=== PATIENT | male | born 1945 | race Hispanic/Latino ===

== ENCOUNTER 2017-07-13 15:58 | Inpatient (IN) | payer OTHER, MEDICARE ==
--- NOTE | 2017-07-13 16:42 | C.PDOC ---
History Of Present Illness 72 year old male presents to the ED for evaluation of cough that is productive of brown sputum and shortness of breath on exertion which began 1 week ago. Patient denies fever, chills. Time Seen by Provider: 07/13/17 16:38 Chief Complaint (Nursing): Shortness Of Breath History Per: Patient History/Exam Limitations: no limitations Onset/Duration Of Symptoms: Other (1 week ) Current Symptoms Are (Timing): Still Present Exacerbating Factor(s): Exertion Current Respiratory Medications: See Home Med List Associated Symptoms: Productive Cough (brown ). denies: Fever, Chills Additional History Per: Patient Past Medical History Reviewed: Historical Data, Nursing Documentation, Vital Signs Vital Signs: Last Vital Signs Temp 98.9 F 07/13/17 19:35 Pulse 103 H 07/13/17 21:46 Resp 22 07/13/17 21:46 BP 114/70 07/13/17 21:46 Pulse Ox 96 07/13/17 21:46 - Medical History PMH: HTN, Pneumonia Surgical History: No Surg Hx Family History: States: Unknown Family Hx - Social History Hx Tobacco Use: No Hx Alcohol Use: No Hx Substance Use: No - Immunization History Hx Tetanus Toxoid Vaccination: No Hx Influenza Vaccination: No Hx Pneumococcal Vaccination: No Review Of Systems Constitutional: Negative for: Fever, Chills Respiratory: Positive for: Cough, SOB with Excertion, Sputum (brown ) Physical Exam - Physical Exam Appears: Non-toxic, No Acute Distress Skin: Normal Color, Warm, Dry Head: Atraumatic, Normacephalic Eye(s): bilateral: Normal Inspection Oral Mucosa: Moist Neck: Supple Chest: Symmetrical, No Deformity, No Tenderness Cardiovascular: Rhythm Regular, No Murmur Respiratory: Other (coarse breath sounds on right side ) Extremity: Normal ROM, Capillary Refill (less than 2 seconds ) Neurological/Psych: Oriented x3, Normal Speech, Normal Cognition ED Course And Treatment - Laboratory Results Result Diagrams: 07/13/17 16:48 07/13/17 16:48 ECG: Interpreted By Me, Viewed By Me ECG Rhythm: Sinus Tachycardia Interpretation Of ECG: Sinus Tachycardia at rate 107bpm. LVH with repolarization abnormality. No previous EKG for comparison. Rate From EC O2 Sat by Pulse Oximetry: 94 Medical Decision Making Medical Decision Making: ro chf pna labs imaging pendign Progress: Bloodwork, urinalysis, CXR, EKG ordered and reviewed. Rocephin IVP, Tylenol PO, and Zithromax IVPB administered. case discussed with pmd dr uribe. antibioitcs lasix, lovenox dosed. asa given. pt w/o cp, chest heaviness. pmd reqquests icu eval. seen by icu attending not icu candidate. pmd requests dr harman consult. case discussed. Disposition - Disposition Disposition: HOSPITALIZED Disposition Time: 10:00 Condition: STABLE - Clinical Impression Clinical Impression: NSTEMI (non-ST elevated myocardial infarction), CHF (congestive heart failure) , Pneumonia - Scribe Statement The provider has reviewed the documentation as recorded by the Scribe (Anahi Lacey) Provider Attestation: All medical record entries made by the Scribe were at my direction and personally dictated by me. I have reviewed the chart and agree that the record accurately reflects my personal performance of the history, physical exam, medical decision making, and the department course for this patient. I have also personally directed, reviewed, and agree with the discharge instructions and disposition.
[2017-07-13 16:52] LABS: BASO # 0.1 K/uL (0.0-0.2); BASO % 0.7 % (0.0-2.0); EOS # 0.1 K/uL (0.0-0.7); EOS % 0.8 % (0.0-4.0); HEMOGLOBIN 12.3 g/dL (12.0-18.0); LYMPH # 1.3 K/uL (1.0-4.3); LYMPH % 7.4 % (20.0-40.0); MEAN CELL VOLUME 90.7 fL (80.0-94.0); MEAN CORPUSCULAR HEMOGLOBIN 30.8 pg (27.0-31.0); MEAN CORPUSCULAR HGB CONC 33.9 g/dL (33.0-37.0); MEAN PLATELET VOLUME 8.2 fL (7.2-11.7); MONO # 0.8 K/uL (0.0-0.8); MONO % 4.3 % (0.0-10.0); NEUT # 15.7 K/uL (1.8-7.0); NEUT % 86.8 % (50.0-75.0); PLATELET COUNT 282 K/uL (130-400); RBC 3.99 Mil/uL (4.40-5.90); RED CELL DISTRIBUTION WIDTH 14.1 % (11.5-14.5); WHITE BLOOD COUNT 18.1 K/uL (4.8-10.8)
[2017-07-13 17:00] LABS: INR 1.5; PROTHROMBIN TIME 16.9 SECONDS (9.7-12.2)
[2017-07-13] MEDS ORDERED: Azithromycin 500 MG in Sodium Chloride 0.9% 250 ML IVPB STA (17:08)
[2017-07-13 17:13] LABS: ALB/GLOB RATIO 0.7 (1.0-2.1); ALBUMIN 3.2 g/dL (3.5-5.0); CALCIUM 9.2 mg/dl (8.6-10.4); GFR AFRICAN-AMERICAN > 60; GFR NON-AFRICAN AMERICAN > 60
[2017-07-13] MEDS ORDERED: cefTRIAXone IV 1 gm in Dextros 50 ML IVPB ONE (17:17)
[2017-07-13 17:22] LABS: ALT/SGPT 77 U/L (21-72); AST/SGOT 85 U/L (17-59); BLOOD UREA NITROGEN 18 mg/dL (9-20)
[2017-07-13 17:30] LABS: B-TYPE NATRIURETIC PEPTIDE 7970 pg/mL (0-900)
[2017-07-13 17:40] LABS: BANDS 1 % (0-2); LYMPHOCYTE 9 % (20-40); MONOCYTE 2 % (0-10); NEUTROPHIL 88 % (50-75); PLATELET ESTIMATE NORMAL (NORMAL); TOTAL CELLS COUNTED 100
[2017-07-13 17:41] LABS: MICROCYTOSIS SLIGHT
[2017-07-13 17:42] LABS: LARGE PLATELETS PRESENT
[2017-07-13] MEDS ORDERED: Enoxaparin 40 mg Syringe SC ONE (17:44)
[2017-07-13] MEDS ORDERED: Enoxaparin 100 mg Syringe ONE (17:50)
[2017-07-13 18:50] LABS: URINE BACTERIA OCC (<OCC); URINE BILIRUBIN NEGATIVE (NEGATIVE); URINE BLOOD NEGATIVE (NEGATIVE); URINE CLARITY Clear (Clear); URINE COLOR Yellow (YELLOW); URINE GLUCOSE (UA) NORMAL (Normal); URINE LEUKOCYTE ESTERASE NEG Leu/uL (Negative); URINE PROTEIN NEGATIVE (NEGATIVE); URINE UROBILINOGEN NORMAL mg/dL (0.2-1.0)
--- NOTE | 2017-07-13 20:16 | CP.PCM.CON ---
History of Present Illness - History of Present Illness History of Present Illness: CCM 72 yo male with hx some chronic back pain to ED c/o sob and TORRES for 1 1/2 weeks. + cough with drak phlegm. Denied chest or abd. pain . No n /v /palp. / diaphoresis/ urinary sx..Daughter was sick ~ 1 month ago. No recent travel. ROS- as noted ALl- NKDA Social- No tob/ etoh/ drugs Meds- reviewed FH- Unknown PE T-98.9 P-99 R- 18 BP-114/64 Alert responsive male, nad Neck-+ jvd Lungs- bilat coarse bs, few basilar crackles Heart-rr, + Syst murmur Abd- bs+, soft, nontender ext- bipedal edema, nontender Neuro- nonfocal Lab, EKG, g-grov-pylchdag A&P CHF PNA +Trop Chronic Back pain check cultures Rx Ab diurese maintain optimal lytes f/u labs/ serial CE ECHO Cardiology eval DVT prophylaxis may admit to telemetry re-consult prn d/w ED staff critical care time spent with patient 35 min Past Patient History - Past Social History Smoking Status: Never Smoked - CARDIAC Hx Hypertension: Yes - PULMONARY Hx Pneumonia: Yes - PSYCHIATRIC Hx Substance Use: No - SURGICAL HISTORY Hx Surgeries: No - ANESTHESIA Hx Anesthesia: No Hx Anesthesia Reactions: No Meds Allergies/Adverse Reactions: Allergies Allergy/AdvReac Type Severity Reaction Status Date / Time No Known Allergies Allergy Verified 07/13/17 16:02 - Medications Medications: Current Medications Ceftriaxone Sodium 1 gm/ (Sodium Chloride) 100 mls @ 100 mls/hr IVPB DAILY [facility] PRN Reason: Protocol Last Admin: 07/13/17 17:25 Dose: 100 mls/hr Results - Vital Signs Recent Vital Signs: Last Vital Signs Temp 98.9 F 07/13/17 19:35 Pulse 107 H 07/13/17 19:35 Resp 18 07/13/17 19:35 BP 114/64 07/13/17 19:35 Pulse Ox 96 07/13/17 19:35 - Labs Result Diagrams: 07/13/17 16:48 07/13/17 16:48 Labs: Laboratory Results - last 24 hr 07/13/17 07/13/17 07/13/17 16:48 16:48 16:48 WBC 18.1 H RBC 3.99 L Hgb 12.3 Hct 36.2 MCV 90.7 MCH 30.8 MCHC 33.9 RDW 14.1 Plt Count 282 MPV 8.2 Neut % (Auto) 86.8 H Lymph % (Auto) 7.4 L [place] % (Auto) 4.3 Eos % (Auto) 0.8 Baso % (Auto) 0.7 Neut # (Auto) 15.7 H Lymph # (Auto) 1.3 [place] # (Auto) 0.8 Eos # (Auto) 0.1 Baso # (Auto) 0.1 Neutrophils % (Manual) 88 H Band Neutrophils % 1 Lymphocytes % (Manual) 9 L Monocytes % (Manual) 2 Platelet Estimate Normal Large Platelets Present Microcytosis (manual) Slight PT 16.9 H INR 1.5 APTT 34 Sodium 140 Potassium 4.3 Chloride 101 Carbon Dioxide 29 Anion Gap 15 BUN 18 Creatinine 0.8 Est GFR ( Amer) > 60 Est GFR (Non-Af Amer) > 60 Random Glucose 137 H Calcium 9.2 Total Bilirubin 1.2 AST 85 H ALT 77 H Alkaline Phosphatase 84 Troponin I 0.2570 H* NT-Pro-B Natriuret Pep 7970 H Total Protein 7.8 Albumin 3.2 L Globulin 4.6 H Albumin/Globulin Ratio 0.7 L Urine Color Urine Clarity Urine pH Ur Specific [place] Urine Protein Urine Glucose (UA) Urine Ketones Urine Blood Urine Nitrate Urine Bilirubin Urine Urobilinogen Ur Leukocyte Esterase Urine WBC (Auto) Urine RBC (Auto) Urine Bacteria 07/13/17 18:41 WBC RBC Hgb Hct MCV MCH MCHC RDW Plt Count MPV Neut % (Auto) Lymph % (Auto) [place] % (Auto) Eos % (Auto) Baso % (Auto) Neut # (Auto) Lymph # (Auto) [place] # (Auto) Eos # (Auto) Baso # (Auto) Neutrophils % (Manual) Band Neutrophils % Lymphocytes % (Manual) Monocytes % (Manual) Platelet Estimate Large Platelets Microcytosis (manual) PT INR APTT Sodium Potassium Chloride Carbon Dioxide Anion Gap BUN Creatinine Est GFR ( Amer) Est GFR (Non-Af Amer) Random Glucose Calcium Total Bilirubin AST ALT Alkaline Phosphatase Troponin I NT-Pro-B Natriuret Pep Total Protein Albumin Globulin Albumin/Globulin Ratio Urine Color Yellow Urine Clarity Clear Urine pH 5.0 Ur Specific [place] 1.014 Urine Protein Negative Urine Glucose (UA) Normal Urine Ketones Negative Urine Blood Negative Urine Nitrate Negative Urine Bilirubin Negative Urine Urobilinogen Normal Ur Leukocyte Esterase Neg Urine WBC (Auto) 2 Urine RBC (Auto) 1 Urine Bacteria Occ H Assessment & Plan (1) CHF (congestive heart failure) Status: Acute (2) PNA (pneumonia) Status: Acute (3) Troponin level elevated Status: Acute (4) Chronic back pain Status: Chronic
[2017-07-13] MEDS: guaiFENesin 200 mg/10 ml Syrup UD PO PRN (21:46)
[2017-07-14] MEDS ORDERED: Heparin25000 units/250ml 1/2NS 25,000 UNITS/250 ML BAG IV PRN ×2 (02:26→06:00)
[2017-07-14 04:10] LABS: URINE BILIRUBIN NEGATIVE (NEGATIVE); URINE BLOOD NEGATIVE (NEGATIVE); URINE CLARITY Clear (Clear); URINE COLOR Yellow (YELLOW); URINE GLUCOSE (UA) NORMAL (Normal); URINE LEUKOCYTE ESTERASE NEG Leu/uL (Negative); URINE PROTEIN NEGATIVE (NEGATIVE); URINE UROBILINOGEN NORMAL mg/dL (0.2-1.0)
[2017-07-14 06:52] LABS: BASO # 0.1 K/uL (0.0-0.2); BASO % 0.4 % (0.0-2.0); EOS # 0.2 K/uL (0.0-0.7); EOS % 1.3 % (0.0-4.0); HEMOGLOBIN 12.9 g/dL (12.0-18.0); LYMPH # 1.4 K/uL (1.0-4.3); LYMPH % 8.5 % (20.0-40.0); MEAN CELL VOLUME 90.9 fL (80.0-94.0); MEAN CORPUSCULAR HEMOGLOBIN 31.1 pg (27.0-31.0); MEAN CORPUSCULAR HGB CONC 34.2 g/dL (33.0-37.0); MEAN PLATELET VOLUME 8.2 fL (7.2-11.7); MONO # 0.9 K/uL (0.0-0.8); MONO % 5.5 % (0.0-10.0); NEUT # 14.2 K/uL (1.8-7.0); NEUT % 84.3 % (50.0-75.0); PLATELET COUNT 319 K/uL (130-400); RBC 4.16 Mil/uL (4.40-5.90); RED CELL DISTRIBUTION WIDTH 14.3 % (11.5-14.5); WHITE BLOOD COUNT 16.8 K/uL (4.8-10.8)
[2017-07-14 07:14] LABS: ALB/GLOB RATIO 0.8 (1.0-2.1); ALBUMIN 3.4 g/dL (3.5-5.0); ALT/SGPT 64 U/L (21-72); AST/SGOT 62 U/L (17-59); BLOOD UREA NITROGEN 17 mg/dL (9-20); CALCIUM 9.1 mg/dl (8.6-10.4); GFR AFRICAN-AMERICAN > 60; GFR NON-AFRICAN AMERICAN > 60; HDL CHOLESTEROL 10 mg/dL (30-70)
[2017-07-14 07:22] LABS: LDL CHOLESTEROL 56 mg/dL (0-129)
[2017-07-14 08:13] LABS: LEGIONELLA AG URINE NEGATIVE (NEGATIVE)
[2017-07-14] MEDS: Albuterol-Ipratrop 3 mg / 0.5 (3 ml) UD INH SCH ×3 (08:26→20:39)
--- NOTE | 2017-07-14 08:33 | CP.PCM.PN ---
Subjective - Date & Time of Evaluation Date of Evaluation: 07/14/17 Time of Evaluation: 08:40 - Subjective Subjective: H&P dictated #[id number] Objective - Vital Signs/Intake and Output Vital Signs (last 24 hours): Temp Pulse Resp BP Pulse Ox 98.6 F 116 H 20 111/67 97 07/13/17 23:05 07/14/17 07:31 07/13/17 23:05 07/13/17 23:05 07/13/17 23:05 Intake and Output: 07/14/17 07/14/17 06:59 18:59 Output Total 300 Balance -300 - Medications Medications: Current Medications Acetaminophen (Tylenol 325mg Tab) 650 mg PO Q6 PRN PRN Reason: Pain, moderate (4-7) Albuterol/Ipratropium (Duoneb 3 Mg/0.5 Mg (3 Ml) Ud) 3 ml INH RQ6 [facility] Last Admin: 07/14/17 08:26 Dose: 3 ml Aspirin (Aspirin) 325 mg PO DAILY [facility] Guaifenesin (Robitussin) 200 mg PO Q6H PRN PRN Reason: Cough and congestion Last Admin: 07/13/17 21:46 Dose: 200 mg Azithromycin 500 mg/ Sodium (Chloride) 250 mls @ 250 mls/hr IVPB DAILY [facility] PRN Reason: Protocol Ceftriaxone Sodium 1 gm/ (Sodium Chloride) 100 mls @ 100 mls/hr IVPB DAILY [facility] PRN Reason: Protocol Heparin Sodium/Sodium Chloride (Heparin 66299 Units/250ml 1/2 Normal Saline) 25 ,000 units in 250 mls @ 10.342 mls/hr IV .Q24H PRN; Protocol; 12 UNITS/KG/HR PRN Reason: PROTOCOL Last Admin: 07/14/17 06:10 Dose: 12 units/kg/hr, 10.342 mls/hr Metoprolol Tartrate (Lopressor) 25 mg PO BID [facility] - Labs Labs: 07/14/17 06:45 07/14/17 06:45 PT 16.9 SECONDS (9.7-12.2) H 07/13/17 16:48 INR 1.5 07/13/17 16:48 APTT 34 SECONDS (21-34) 07/13/17 16:48
--- NOTE | 2017-07-14 08:38 | RAD ---
PROCEDURE: CHEST RADIOGRAPH, 1 VIEW HISTORY: chest pain COMPARISON: None available. FINDINGS: LUNGS: Moderate airspace disease identified in the mid to inferior right lung zone is borderline the left retrocardiac region. Interstitial markings appear diffusely increased throughout, bilaterally. PLEURA: No pneumothorax or pleural fluid seen. CARDIOVASCULAR: Prominent cardiac silhouette is suggested. Some of this is on the basis of technical magnification although cardiomegaly is not completely excluded. OSSEOUS STRUCTURES: No significant abnormalities. VISUALIZED UPPER ABDOMEN: Normal. OTHER FINDINGS: None. 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 Clinically correlate further. Cardiomegaly likely.
[2017-07-14] MEDS ORDERED: Sodium Chloride 0.9% 1,000 ML IV SCH (09:15)
[2017-07-14 09:17] LABS: EOSINOPHIL 2 % (0-4); MONOCYTE 4 % (0-10); TOTAL CELLS COUNTED 100
[2017-07-14 09:18] LABS: LYMPHOCYTE 7 % (20-40); NEUTROPHIL 87 % (50-75)
[2017-07-14 09:22] LABS: PLATELET ESTIMATE NORMAL (NORMAL)
[2017-07-14 09:25] LABS: ANISOCYTOSIS SLIGHT
[2017-07-14 09:26] LABS: OVALOCYTES SLIGHT
[2017-07-14] MEDS ORDERED: Iodixanol 320 MG/ML 100 ML BOTTLE IV ONE (09:48)
[2017-07-14] MEDS: Azithromycin 500 MG in Sodium Chloride 0.9% 250 ML IVPB SCH (09:55)
[2017-07-14] MEDS: guaiFENesin 200 mg/10 ml Syrup UD PO PRN (09:59)
[2017-07-14] MEDS ORDERED: Enoxaparin 40 mg Syringe SC SCH (10:00)
--- NOTE | 2017-07-14 11:32 | CT ---
PROCEDURE: CT Chest with contrast (Pulmonary Angiogram) HISTORY: r/o pe COMPARISON: None available. TECHNIQUE: Axial computed tomography images were obtained of the chest in the pulmonary arterial phase of enhancement. Coronal and sagittal reformatted images were created and reviewed. Intravenous contrast dose: Visipaque 320, 100 cc Radiation dose: Total exam DLP = 528.90 mGy-cm. This CT exam was performed using one or more of the following dose reduction techniques: Automated exposure control, adjustment of the mA and/or kV according to patient size, and/or use of iterative reconstruction technique. FINDINGS: PULMONARY ARTERIES: Unremarkable. No pulmonary embolism. AORTA: No acute findings. No thoracic aortic aneurysm. LUNGS: Diffuse infiltrated identified bilaterally revealing more extensive disease than shown in prior chest radiograph 07/13/2017. Right upper and bilateral lower lobes appear most severely affected with likely atelectasis identified at the lingula base. PLEURAL SPACES: Minimal left and mild right pleural effusions are identified as well as a mild pericardial effusion. HEART: Cardiomegaly with pericardial effusion as discussed above. LYMPH NODES: Moderate mediastinal lymphadenopathy is identified including at the preaortic retro vascular, paratracheal, preaortic and subcarinal spaces with a sub carinal lymph node aggregate of lymph nodes measuring 2.6 x 3.1 cm. BONES, CHEST WALL: Unremarkable. No fracture or destructive lesion OTHER FINDINGS: Small hiatal hernia. IMPRESSION: Bilateral diffuse infiltrates are identified as discussed above as well as mild right and minimal left pleural effusion. Mild pericardial effusion and with cardiomegaly. Significant mediastinal lymphadenopathy identified.
--- NOTE | 2017-07-14 13:17 | CP.PCM.CON ---
History of Present Illness - History of Present Illness History of Present Illness: Consultation for evaluation of NSTEMI HPI: 72 year old male with hx of HTN presenting with c/o sob and productive cough brownish x 1 week. Says had some chest pain inbetween the shoulder blades which he relates a MSK injury. Review of Systems - Review of Systems Systems not reviewed;Unavailable: Acuity of Condition - Constitutional Constitutional: As Per HPI - EENT Eyes: As Per HPI Ears: As Per HPI Nose/Mouth/Throat: As Per HPI - Cardiovascular Cardiovascular: As Per HPI - Respiratory Respiratory: As Per HPI - Gastrointestinal Gastrointestinal: As Per HPI - Genitourinary Genitourinary: As Per HPI - Reproductive: Male Reproductive:Male: As Per HPI - Musculoskeletal Musculoskeletal: As Per HPI - Integumentary Integumentary: As Per HPI - Neurological Neurological: As Per HPI - Psychiatric Psychiatric: As Per HPI - Endocrine Endocrine: As Per HPI - Hematologic/Lymphatic Hematologic: As Per HPI Past Patient History - Past Medical History & Family History Past Medical History?: Yes - Past Social History Smoking Status: Former Smoker - CARDIAC Hx Cardiac Disorders: Yes Hx Hypertension: Yes - PULMONARY Hx Respiratory Disorders: Yes Hx Pneumonia: Yes - NEUROLOGICAL Hx Neurological Disorder: No - HEENT Hx HEENT Problems: Yes Hx Deafness: Yes (left ear hearing loss) - RENAL Hx Chronic Kidney Disease: No - ENDOCRINE/METABOLIC Hx Endocrine Disorders: No - HEMATOLOGICAL/ONCOLOGICAL Hx Blood Disorders: No - INTEGUMENTARY Hx Dermatological Problems: No - MUSCULOSKELETAL/RHEUMATOLOGICAL Hx Musculoskeletal Disorders: No Hx Falls: No - GASTROINTESTINAL Hx Gastrointestinal Disorders: No - GENITOURINARY/GYNECOLOGICAL Hx Genitourinary Disorders: No - PSYCHIATRIC Hx Psychophysiologic Disorder: No Hx Substance Use: No - SURGICAL HISTORY Hx Surgeries: No - ANESTHESIA Hx Anesthesia: No Hx Anesthesia Reactions: No Meds Allergies/Adverse Reactions: Allergies Allergy/AdvReac Type Severity Reaction Status Date / Time No Known Allergies Allergy Verified 07/13/17 16:02 - Medications Medications: Current Medications Acetaminophen (Tylenol 325mg Tab) 650 mg PO Q6 PRN PRN Reason: Pain, moderate (4-7) Albuterol/Ipratropium (Duoneb 3 Mg/0.5 Mg (3 Ml) Ud) 3 ml INH RQ6 [facility] Last Admin: 07/14/17 08:26 Dose: 3 ml Aspirin (Aspirin) 325 mg PO DAILY [facility] Last Admin: 07/14/17 09:59 Dose: 325 mg Guaifenesin (Robitussin) 200 mg PO Q6H PRN PRN Reason: Cough and congestion Last Admin: 07/14/17 09:59 Dose: 200 mg Azithromycin 500 mg/ Sodium (Chloride) 250 mls @ 250 mls/hr IVPB DAILY [facility] PRN Reason: Protocol Last Admin: 07/14/17 09:55 Dose: 250 mls/hr Ceftriaxone Sodium 1 gm/ (Sodium Chloride) 100 mls @ 100 mls/hr IVPB DAILY [facility] PRN Reason: Protocol Last Admin: 07/14/17 09:56 Dose: 100 mls/hr Heparin Sodium/Sodium Chloride (Heparin 49266 Units/250ml 1/2 Normal Saline) 25 ,000 units in 250 mls @ 10.342 mls/hr IV .Q24H PRN; Protocol; 12 UNITS/KG/HR PRN Reason: PROTOCOL Last Admin: 07/14/17 06:10 Dose: 12 units/kg/hr, 10.342 mls/hr Sodium Chloride (Sodium Chloride 0.9%) 1,000 mls @ 60 mls/hr IV .[id number] [facility] Last Admin: 07/14/17 09:55 Dose: 60 mls/hr Metoprolol Tartrate (Lopressor) 25 mg PO BID [facility] Last Admin: 07/14/17 09:59 Dose: 25 mg Physical Exam - Constitutional Appears: Well - Head Exam Head Exam: ATRAUMATIC, NORMAL INSPECTION, NORMOCEPHALIC - Eye Exam Eye Exam: EOMI, Normal appearance, PERRL Pupil Exam: NORMAL ACCOMODATION, PERRL - ENT Exam ENT Exam: Mucous Membranes Moist, Normal Exam - Neck Exam Neck exam: Positive for: Normal Inspection - Respiratory Exam Respiratory Exam: Clear to Auscultation Bilateral, NORMAL BREATHING PATTERN - Cardiovascular Exam Cardiovascular Exam: REGULAR RHYTHM, +S1, +S2, Systolic Murmur - GI/Abdominal Exam GI & Abdominal Exam: Normal Bowel Sounds, Soft. absent: Tenderness - Extremities Exam Extremities exam: Positive for: normal inspection - Back Exam Back exam: NORMAL INSPECTION - Neurological Exam Neurological exam: Alert, CN II-XII Intact, Normal Gait, Oriented x3, Reflexes Normal - Psychiatric Exam Psychiatric exam: Normal Affect, Normal Mood - Skin Skin Exam: Dry, Intact, Normal Color, Warm Results - Vital Signs Recent Vital Signs: Last Vital Signs Temp 99.5 F 07/14/17 07:00 Pulse 116 H 07/14/17 07:31 Resp 20 07/14/17 07:00 BP 110/71 07/14/17 09:59 Pulse Ox 94 L 07/14/17 07:00 - Labs Result Diagrams: 07/16/17 06:23 07/16/17 06:23 Labs: Laboratory Results - last 24 hr 07/13/17 07/13/17 07/13/17 16:48 16:48 16:48 WBC 18.1 H RBC 3.99 L Hgb 12.3 Hct 36.2 MCV 90.7 MCH 30.8 MCHC 33.9 RDW 14.1 Plt Count 282 MPV 8.2 Neut % (Auto) 86.8 H Lymph % (Auto) 7.4 L [place] % (Auto) 4.3 Eos % (Auto) 0.8 Baso % (Auto) 0.7 Neut # (Auto) 15.7 H Lymph # (Auto) 1.3 [place] # (Auto) 0.8 Eos # (Auto) 0.1 Baso # (Auto) 0.1 Neutrophils % (Manual) 88 H Band Neutrophils % 1 Lymphocytes % (Manual) 9 L Monocytes % (Manual) 2 Eosinophils % (Manual) Platelet Estimate Normal Large Platelets Present Anisocytosis (manual) Microcytosis (manual) Slight Ovalocytes PT 16.9 H INR 1.5 APTT 34 Sodium 140 Potassium 4.3 Chloride 101 Carbon Dioxide 29 Anion Gap 15 BUN 18 Creatinine 0.8 Est GFR ( Amer) > 60 Est GFR (Non-Af Amer) > 60 Random Glucose 137 H Calcium 9.2 Total Bilirubin 1.2 AST 85 H ALT 77 H Alkaline Phosphatase 84 Troponin I 0.2570 H* NT-Pro-B Natriuret Pep 7970 H Total Protein 7.8 Albumin 3.2 L Globulin 4.6 H Albumin/Globulin Ratio 0.7 L Triglycerides Cholesterol LDL Cholesterol Direct HDL Cholesterol TSH 3rd Generation Urine Color Urine Clarity Urine pH Ur Specific [place] Urine Protein Urine Glucose (UA) Urine Ketones Urine Blood Urine Nitrate Urine Bilirubin Urine Urobilinogen Ur Leukocyte Esterase Urine WBC (Auto) Urine RBC (Auto) Urine Bacteria Hyaline Casts Ur L.pneumophila Ag 07/13/17 07/14/17 07/14/17 18:41 00:45 04:02 WBC RBC Hgb Hct MCV MCH MCHC RDW Plt Count MPV Neut % (Auto) Lymph % (Auto) [place] % (Auto) Eos % (Auto) Baso % (Auto) Neut # (Auto) Lymph # (Auto) [place] # (Auto) Eos # (Auto) Baso # (Auto) Neutrophils % (Manual) Band Neutrophils % Lymphocytes % (Manual) Monocytes % (Manual) Eosinophils % (Manual) Platelet Estimate Large Platelets Anisocytosis (manual) Microcytosis (manual) Ovalocytes PT INR APTT Sodium Potassium Chloride Carbon Dioxide Anion Gap BUN Creatinine Est GFR ( Amer) Est GFR (Non-Af Amer) Random Glucose Calcium Total Bilirubin AST ALT Alkaline Phosphatase Troponin I 0.3040 H* NT-Pro-B Natriuret Pep Total Protein Albumin Globulin Albumin/Globulin Ratio Triglycerides Cholesterol LDL Cholesterol Direct HDL Cholesterol TSH 3rd Generation Urine Color Yellow Urine Clarity Clear Urine pH 5.0 Ur Specific [place] 1.014 Urine Protein Negative Urine Glucose (UA) Normal Urine Ketones Negative Urine Blood Negative Urine Nitrate Negative Urine Bilirubin Negative Urine Urobilinogen Normal Ur Leukocyte Esterase Neg Urine WBC (Auto) 2 Urine RBC (Auto) 1 Urine Bacteria Occ H Hyaline Casts Ur L.pneumophila Ag Negative 07/14/17 07/14/17 07/14/17 04:02 06:45 06:45 WBC 16.8 H RBC 4.16 L Hgb 12.9 Hct 37.8 MCV 90.9 MCH 31.1 H MCHC 34.2 RDW 14.3 Plt Count 319 MPV 8.2 Neut % (Auto) 84.3 H Lymph % (Auto) 8.5 L [place] % (Auto) 5.5 Eos % (Auto) 1.3 Baso % (Auto) 0.4 Neut # (Auto) 14.2 H Lymph # (Auto) 1.4 [place] # (Auto) 0.9 H Eos # (Auto) 0.2 Baso # (Auto) 0.1 Neutrophils % (Manual) 87 H Band Neutrophils % Lymphocytes % (Manual) 7 L Monocytes % (Manual) 4 Eosinophils % (Manual) 2 Platelet Estimate Normal Large Platelets Anisocytosis (manual) Slight Microcytosis (manual) Ovalocytes Slight PT INR APTT Sodium 144 Potassium 4.3 Chloride 99 Carbon Dioxide 31 H Anion Gap 18 BUN 17 Creatinine 0.9 Est GFR ( Amer) > 60 Est GFR (Non-Af Amer) > 60 Random Glucose 96 Calcium 9.1 Total Bilirubin 0.9 AST 62 H D ALT 64 Alkaline Phosphatase 124 Troponin I 0.2360 H* NT-Pro-B Natriuret Pep Total Protein 7.7 Albumin 3.4 L Globulin 4.3 H Albumin/Globulin Ratio 0.8 L Triglycerides 132 Cholesterol 110 LDL Cholesterol Direct 56 HDL Cholesterol 10 L TSH 3rd Generation 1.01 Urine Color Yellow Urine Clarity Clear Urine pH 5.0 Ur Specific [place] 1.019 Urine Protein Negative Urine Glucose (UA) Normal Urine Ketones Negative Urine Blood Negative Urine Nitrate Negative Urine Bilirubin Negative Urine Urobilinogen Normal Ur Leukocyte Esterase Neg Urine WBC (Auto) 1 Urine RBC (Auto) 1 Urine Bacteria Hyaline Casts 3-5 H Ur L.pneumophila Ag 07/14/17 12:45 WBC RBC Hgb Hct MCV MCH MCHC RDW Plt Count MPV Neut % (Auto) Lymph % (Auto) [place] % (Auto) Eos % (Auto) Baso % (Auto) Neut # (Auto) Lymph # (Auto) [place] # (Auto) Eos # (Auto) Baso # (Auto) Neutrophils % (Manual) Band Neutrophils % Lymphocytes % (Manual) Monocytes % (Manual) Eosinophils % (Manual) Platelet Estimate Large Platelets Anisocytosis (manual) Microcytosis (manual) Ovalocytes PT INR APTT 40 H D Sodium Potassium Chloride Carbon Dioxide Anion Gap BUN Creatinine Est GFR ( Amer) Est GFR (Non-Af Amer) Random Glucose Calcium Total Bilirubin AST ALT Alkaline Phosphatase Troponin I NT-Pro-B Natriuret Pep Total Protein Albumin Globulin Albumin/Globulin Ratio Triglycerides Cholesterol LDL Cholesterol Direct HDL Cholesterol TSH 3rd Generation Urine Color Urine Clarity Urine pH Ur Specific [place] Urine Protein Urine Glucose (UA) Urine Ketones Urine Blood Urine Nitrate Urine Bilirubin Urine Urobilinogen Ur Leukocyte Esterase Urine WBC (Auto) Urine RBC (Auto) Urine Bacteria Hyaline Casts Ur L.pneumophila Ag Assessment & Plan (1) CHF (congestive heart failure) Assessment and Plan: Echo lasix bb acei telemetry Status: Acute (2) NSTEMI (non-ST elevated myocardial infarction) Assessment and Plan: IV heparin echo asa, bb, statins Status: Acute (3) PNA (pneumonia) Assessment and Plan: abx pulmonary eval Status: Acute (4) Troponin level elevated Status: Acute
--- NOTE | 2017-07-14 13:19 | HP ---
CHIEF COMPLAINT: Progressive worsening of shortness of breath on exertion over the past one week with intermittent chest pain. HISTORY OF PRESENT ILLNESS: Mr. Douglass is a 72-year-old male with no significant past medical history other than hypertension, has not been following up with PMD, was advised to take medications for hypertension.He used to follow up with Dr. 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 He had not seen any MD in the past 6-7 years. He claims that he had 3 episodes of pneumonia in the past 10 years.He came into the emergency room yesterday as his shortness of breath on exertion was getting worse, associated with intermittent chest pain, not able to describe the nature of the pain. At rest, he denies any headache, dizziness. Denies any chest pain or shortness of breath. Denies any abdominal pain, diarrhea, or constipation. Denies any urinary complaints. Denies any other neurologic symptoms, but he claims that he feels dizzy when he is getting up intermittently and has been having unsteady gait for a long time. He denies any recent travel, but he has been doing his activities as usual while he is at home. Denies any other complaints. PAST MEDICAL HISTORY: Hypertension. PAST SURGICAL HISTORY: Denies any past surgical history. FAMILY HISTORY: Nothing contributory to the present illness ALLERGIES: NO KNOWN DRUG ALLERGIES. MEDICATIONS:None. PERSONAL HISTORY: He is , living with his , having 3 children. 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 Quit smoking about 15 years ago. Denies any alcohol or drug abuse. REVIEW OF SYSTEMS: As described in history of present illness, all other systems reviewed and were found to be negative. PHYSICAL EXAMINATION: GENERAL: An elderly male, lying in bed, in no acute distress. VITAL SIGNS: Blood pressure 103/67, pulse 110, respirations 20, temperature 99.5 degrees Fahrenheit, O2 saturation 94% on room air. HEENT: Pupils equal, round, and reacting to light and accommodation. Extraocular muscles intact. No icterus. No pallor. No oral thrush. No pharyngeal congestion. NECK: Supple. No JVD. No thyromegaly. CHEST: Moving equally bilaterally on respiration. LUNGS: Bilateral vesicular breath sounds. Decreased breath sounds. Basal rhonchi heard. CVS: S1, S2 present. Regular. ABDOMEN: Soft, nontender. Bowel sounds present. No guarding. No rigidity. No rebound tenderness noted. HORSE TRADER: Alert, awake, and oriented x3. No focal deficits noted. EXTREMITIES: 2+ pitting edema. Palpable peripheral pulses. LABORATORY DATA: Done from ED; WBC 18.1, hemoglobin 12.3, hematocrit 36.2, platelets 282, PT 16.9, INR 1.5, PTT 34, sodium 140, potassium 4.3, chloride 101, bicarb 29, BUN 18, creatinine 0.8, glucose 137, calcium 9.2, total bilirubin 1.2, AST 85, ALT 77, alkaline phosphatase 84, troponin 0.2570, 0.3040. ProBNP is 7970. Total protein 7.8, albumin 3.2. Cholesterol 110, LDL 56, triglycerides 132, HDL 10, TSH 1.1. UA negative. Legionella negative. Mycoplasma pending. Blood cultures pending. EKG consistent with sinus tachycardia at 107 beats per minute, LVH present. Chest x-ray consistent with mixed alveolar and interstitial process suggested including alveolitis at the rate greater than left lung bases and diffuse interstitial pulmonary changes, otherwise evident without CHF pattern or cardiomegaly. ASSESSMENT AND PLAN: An elderly male with history of Hypertension, noncompliant with medications and doctors visits, not seen an MD in long time admitted for progressive worsening of dyspnea on exertion with intermittent chest pain. In the emergency department, the patient was found to be having elevated troponin, tachycardic, and chest x-ray consistent with infiltrates. The patient is being admitted for further evaluation. 1. Pulmonary alveolar and interstitial infiltrates, rule out pneumonia. 2. Tachycardia with dyspnea on exertion and slightly elevated troponins, rule out pulmonary embolism, rule out acute coronary syndrome. Rule out CAD 3. Elevated white blood cells, probably secondary to lung infiltrates. 4. CHF exacerbation PLAN: The patient is being admitted to telemetry. We will do serial cardiac enzymes, serial EKGs. We will check echocardiogram. Cardiology consult with Dr. Lora requested. We will do CT of the chest. The patient received Rocephin and Zithromax in the emergency room yesterday. We will continue with Rocephin 1 gm daily with Zithromax 500 mg daily. We will follow the blood cultures, check sputum culture and Gram stain. Heparin drip was ordered by Cardiology. We will add further recommendation as his clinical course progresses. Marisol Bishop MD MTDD
[2017-07-14 16:54] LABS: MYCOPLASMA PNEUMONIAE IGM NEGATIVE (NEGATIVE)
[2017-07-14] MEDS ORDERED: MethylPREDNISolone 40 mg Vial IVP STA (22:19)
[2017-07-14 22:31] LABS: ARTERIAL BLOOD GAS HCO3 26.4 mmol/L (21-28); ARTERIAL BLOOD GAS PCO2 31 mm/Hg (35-45); ARTERIAL BLOOD GAS PH 7.51 (7.35-7.45); ARTERIAL BLOOD GAS PO2 45 mm/Hg (80-100); ARTERIAL BLOOD GAS TCO2 25.7 mmol/L (22-28)
[2017-07-14] MEDS ORDERED: Albuterol-Ipratrop 3 mg / 0.5 (3 ml) UD INH STA (22:54)
[2017-07-14 23:28] LABS: ALB/GLOB RATIO 0.7 (1.0-2.1); ALBUMIN 3.3 g/dL (3.5-5.0); ALT/SGPT 58 U/L (21-72); AST/SGOT 45 U/L (17-59); BLOOD UREA NITROGEN 17 mg/dL (9-20); GFR AFRICAN-AMERICAN > 60; GFR NON-AFRICAN AMERICAN > 60
--- NOTE | 2017-07-14 23:57 | CP.PCM.PCO ---
Additional Comments - Additional Comments Additional Comments: 2200- Patient c/o SOB. Vitals assessed and pt BP 108/67, Pulse 125, O2 82%. Informed house Doctor Dr. Wilson. Ordered Lasix, solumedrol, non-rebreather and ABG. Pt placed on non-rebreather and O2 sat 96%. Patient reported feeling better. 2210- CMP, PTT and CXR stat completed. 2220- Pt has no c/o distress or SOB. O2 was 96%. Patient seen and examined at bedside appearing drowsy. O2 saturation 85%. Using accessory muscles. Patient coughs brownish red sputum. Patient states the sputum is no different than before admission. Patient states he still has back pain in between shoulder blades. Today's CTA showed pleural effusions, negative for PE, no aortic dissection noted on final read. EKG ordered as well. ABG ordered stat with CMP, Mg, Ph CXR ordered, indicating increased fluid overload. lasix 40mg IVP Solumedrol 125mg IVP Duonebs stat normal saline discontinued 22:00 Patient placed on non-rebreather, O2 Saturation 96%. Patient states he feels better.
[2017-07-15] MEDS: Heparin25000 units/250ml 1/2NS 25,000 UNITS/250 ML BAG IV PRN ×2 (00:33→07:44)
[2017-07-15] MEDS: Albuterol-Ipratrop 3 mg / 0.5 (3 ml) UD INH SCH ×4 (01:11→19:48)
[2017-07-15 07:38] LABS: BASO % 0.4 % (0.0-2.0); EOS % 0.1 % (0.0-4.0); HEMOGLOBIN 13.2 g/dL (12.0-18.0); LYMPH # 0.8 K/uL (1.0-4.3); LYMPH % 6.5 % (20.0-40.0); MEAN CORPUSCULAR HEMOGLOBIN 31.4 pg (27.0-31.0); MEAN CORPUSCULAR HGB CONC 34.5 g/dL (33.0-37.0); MEAN PLATELET VOLUME 8.4 fL (7.2-11.7); MONO # 0.4 K/uL (0.0-0.8); MONO % 3.1 % (0.0-10.0); NEUT # 10.4 K/uL (1.8-7.0); NEUT % 89.9 % (50.0-75.0); PLATELET COUNT 315 K/uL (130-400); RBC 4.19 Mil/uL (4.40-5.90); RED CELL DISTRIBUTION WIDTH 14.2 % (11.5-14.5); WHITE BLOOD COUNT 11.6 K/uL (4.8-10.8)
[2017-07-15 08:15] LABS: ALB/GLOB RATIO 0.7 (1.0-2.1); ALBUMIN 3.2 g/dL (3.5-5.0); ALT/SGPT 56 U/L (21-72); AST/SGOT 37 U/L (17-59); BLOOD UREA NITROGEN 21 mg/dL (9-20); CALCIUM 9.4 mg/dl (8.6-10.4); GFR AFRICAN-AMERICAN > 60; GFR NON-AFRICAN AMERICAN > 60
--- NOTE | 2017-07-15 09:46 | RAD ---
HISTORY: O2 desaturation COMPARISON: Portable chest 07/13/2017. FINDINGS: LUNGS: Increasing bilateral infiltrate traits are identified, right side greater than left indicative of worsening alveolar disease. PLEURA: No significant pleural effusion identified, no pneumothorax apparent. CARDIOVASCULAR: Stable cardiomegaly. Pulmonary vasculature is obscured by infiltrates. OSSEOUS STRUCTURES: No significant abnormalities. VISUALIZED UPPER ABDOMEN: Normal. OTHER FINDINGS: None. IMPRESSION: Significant interval worsening of bilateral pulmonary infiltrates, right greater than left.
[2017-07-15] MEDS: guaiFENesin 200 mg/10 ml Syrup UD PO PRN (09:57)
[2017-07-15] MEDS: Azithromycin 500 MG in Sodium Chloride 0.9% 250 ML IVPB SCH (09:58)
[2017-07-15 10:18] LABS: LYMPHOCYTE 7 % (20-40); MONOCYTE 3 % (0-10); NEUTROPHIL 90 % (50-75); TOTAL CELLS COUNTED 100
[2017-07-15 10:19] LABS: ANISOCYTOSIS SLIGHT; PLATELET ESTIMATE NORMAL (NORMAL)
[2017-07-15 10:21] LABS: TOXIC GRANULATION PRESENT
--- NOTE | 2017-07-15 14:15 | CP.PCM.PN ---
Subjective - Date & Time of Evaluation Date of Evaluation: 07/15/17 Time of Evaluation: 14:15 - Subjective Subjective: Progress note dictated #[id number] Objective - Vital Signs/Intake and Output Vital Signs (last 24 hours): Temp Pulse Resp BP Pulse Ox 98.0 F 94 H 20 113/70 98 07/15/17 07:00 07/15/17 11:30 07/15/17 07:00 07/15/17 09:58 07/15/17 07:00 Intake and Output: 07/15/17 07/15/17 06:59 18:59 Intake Total 300.4 Output Total 300 1400 Balance -300 -1099.6 - Medications Medications: Current Medications Acetaminophen (Tylenol 325mg Tab) 650 mg PO Q6 PRN PRN Reason: Pain, moderate (4-7) Albuterol/Ipratropium (Duoneb 3 Mg/0.5 Mg (3 Ml) Ud) 3 ml INH RQ6 [facility] Last Admin: 07/15/17 13:04 Dose: 3 ml Aspirin (Aspirin) 325 mg PO DAILY [facility] Last Admin: 07/15/17 10:10 Dose: 325 mg Furosemide (Lasix) 40 mg IVP DAILY [facility] Guaifenesin (Robitussin) 200 mg PO Q6H PRN PRN Reason: Cough and congestion Last Admin: 07/15/17 09:57 Dose: 200 mg Azithromycin 500 mg/ Sodium (Chloride) 250 mls @ 250 mls/hr IVPB DAILY [facility] PRN Reason: Protocol Last Admin: 07/15/17 09:58 Dose: 250 mls/hr Ceftriaxone Sodium 1 gm/ (Sodium Chloride) 100 mls @ 100 mls/hr IVPB DAILY [facility] PRN Reason: Protocol Last Admin: 07/15/17 09:58 Dose: 100 mls/hr Heparin Sodium/Sodium Chloride (Heparin 62716 Units/250ml 1/2 Normal Saline) 25 ,000 units in 250 mls @ 11.303 mls/hr IV .Q22H8M PRN; Protocol; 14 UNITS/KG/HR PRN Reason: PROTOCOL Last Admin: 07/15/17 07:44 Dose: 14 units/kg/hr, 11.303 mls/hr Metoprolol Tartrate (Lopressor) 25 mg PO BID [facility] Last Admin: 07/15/17 09:58 Dose: 25 mg - Labs Labs: 07/15/17 07:27 07/15/17 07:27 PT 16.9 SECONDS (9.7-12.2) H 07/13/17 16:48 INR 1.5 07/13/17 16:48 APTT 45 SECONDS (21-34) H D 07/15/17 13:27
--- NOTE | 2017-07-15 16:42 | CP.PCM.CON ---
History of Present Illness - History of Present Illness History of Present Illness: reason for consultation: shortness of breath and cough 72 year old male presented to the ED for evaluation of cough that is productive of brown sputum and shortness of breath on exertion which began 1 week ago. Patient denies fever, chills. CAT scan of the chest consistent with diffuse bilateral infiltrate with effusion and cardiomegaly. Patient also found to have elevated troponins. Patient started on IV antibiotics and seen by cardiology. Patient on heparin drip. Patient states breathing is much better Review of Systems - Review of Systems All systems: reviewed and no additional remarkable complaints except (shortness of breath and cough) Past Patient History - Past Medical History & Family History Past Medical History?: Yes - Past Social History Smoking Status: Former Smoker - CARDIAC Hx Cardiac Disorders: Yes Hx Hypertension: Yes - PULMONARY Hx Respiratory Disorders: Yes Hx Pneumonia: Yes - NEUROLOGICAL Hx Neurological Disorder: No - HEENT Hx HEENT Problems: Yes Hx Deafness: Yes (left ear hearing loss) - RENAL Hx Chronic Kidney Disease: No - ENDOCRINE/METABOLIC Hx Endocrine Disorders: No - HEMATOLOGICAL/ONCOLOGICAL Hx Blood Disorders: No - INTEGUMENTARY Hx Dermatological Problems: No - MUSCULOSKELETAL/RHEUMATOLOGICAL Hx Musculoskeletal Disorders: No Hx Falls: No - GASTROINTESTINAL Hx Gastrointestinal Disorders: No - GENITOURINARY/GYNECOLOGICAL Hx Genitourinary Disorders: No - PSYCHIATRIC Hx Psychophysiologic Disorder: No Hx Substance Use: No - SURGICAL HISTORY Hx Surgeries: No - ANESTHESIA Hx Anesthesia: No Hx Anesthesia Reactions: No Meds Allergies/Adverse Reactions: Allergies Allergy/AdvReac Type Severity Reaction Status Date / Time No Known Allergies Allergy Verified 07/13/17 16:02 - Medications Medications: Current Medications Acetaminophen (Tylenol 325mg Tab) 650 mg PO Q6 PRN PRN Reason: Pain, moderate (4-7) Albuterol/Ipratropium (Duoneb 3 Mg/0.5 Mg (3 Ml) Ud) 3 ml INH RQ6 [facility] Last Admin: 07/15/17 13:04 Dose: 3 ml Aspirin (Aspirin) 325 mg PO DAILY [facility] Last Admin: 07/15/17 10:10 Dose: 325 mg Furosemide (Lasix) 40 mg IVP DAILY [facility] Guaifenesin (Robitussin) 200 mg PO Q6H PRN PRN Reason: Cough and congestion Last Admin: 07/15/17 09:57 Dose: 200 mg Azithromycin 500 mg/ Sodium (Chloride) 250 mls @ 250 mls/hr IVPB DAILY [facility] PRN Reason: Protocol Last Admin: 07/15/17 09:58 Dose: 250 mls/hr Ceftriaxone Sodium 1 gm/ (Sodium Chloride) 100 mls @ 100 mls/hr IVPB DAILY [facility] PRN Reason: Protocol Last Admin: 07/15/17 09:58 Dose: 100 mls/hr Heparin Sodium/Sodium Chloride (Heparin 08696 Units/250ml 1/2 Normal Saline) 25 ,000 units in 250 mls @ 11.303 mls/hr IV .Q22H8M PRN; Protocol; 14 UNITS/KG/HR PRN Reason: PROTOCOL Last Admin: 07/15/17 07:44 Dose: 14 units/kg/hr, 11.303 mls/hr Metoprolol Tartrate (Lopressor) 25 mg PO BID [facility] Last Admin: 07/15/17 09:58 Dose: 25 mg Physical Exam - Head Exam Head Exam: ATRAUMATIC, NORMOCEPHALIC - Eye Exam Eye Exam: Normal appearance - ENT Exam ENT Exam: Mucous Membranes Moist - Respiratory Exam Respiratory Exam: Rales - Cardiovascular Exam Cardiovascular Exam: REGULAR RHYTHM - GI/Abdominal Exam GI & Abdominal Exam: Normal Bowel Sounds, Soft - Extremities Exam Extremities exam: Positive for: normal inspection Results - Vital Signs Recent Vital Signs: Last Vital Signs Temp 98.0 F 07/15/17 07:00 Pulse 94 H 07/15/17 11:30 Resp 20 07/15/17 07:00 BP 113/70 07/15/17 09:58 Pulse Ox 98 07/15/17 07:00 - Labs Result Diagrams: 07/15/17 07:27 07/15/17 07:27 Labs: Laboratory Results - last 24 hr 07/14/17 07/14/17 07/14/17 04:02 06:45 22:27 WBC RBC Hgb Hct MCV MCH MCHC RDW Plt Count MPV Neut % (Auto) Lymph % (Auto) [place] % (Auto) Eos % (Auto) Baso % (Auto) Neut # (Auto) Lymph # (Auto) [place] # (Auto) Eos # (Auto) Baso # (Auto) Neutrophils % (Manual) Lymphocytes % (Manual) Monocytes % (Manual) Toxic Granulation Platelet Estimate Anisocytosis (manual) APTT Puncture Site Rra pCO2 31 L pO2 45 L HCO3 26.4 ABG pH 7.51 H ABG Total CO2 25.7 ABG O2 Saturation 87.0 L ABG Base Excess 2.3 Oskar Test Na ABG Potassium 3.5 L Sodium 139.0 Chloride 106.0 Glucose 141 H Lactate 1.5 Liter Flow 3.0 Potassium Carbon Dioxide Anion Gap BUN Creatinine Est GFR ( Amer) Est GFR (Non-Af Amer) Random Glucose Hemoglobin A1c 5.8 Calcium Phosphorus Magnesium Total Bilirubin AST ALT Alkaline Phosphatase Total Protein Albumin Globulin Albumin/Globulin Ratio Arterial Blood Potassium 3.5 L Mycoplasma pneumon IgM Negative 07/14/17 07/14/17 07/15/17 23:11 23:16 07:27 WBC 11.6 H RBC 4.19 L Hgb 13.2 Hct 38.1 MCV 91.0 MCH 31.4 H MCHC 34.5 RDW 14.2 Plt Count 315 MPV 8.4 Neut % (Auto) 89.9 H Lymph % (Auto) 6.5 L [place] % (Auto) 3.1 Eos % (Auto) 0.1 Baso % (Auto) 0.4 Neut # (Auto) 10.4 H Lymph # (Auto) 0.8 L [place] # (Auto) 0.4 Eos # (Auto) 0.0 Baso # (Auto) 0.0 Neutrophils % (Manual) 90 H Lymphocytes % (Manual) 7 L Monocytes % (Manual) 3 Toxic Granulation Present Platelet Estimate Normal Anisocytosis (manual) Slight APTT 34 D Puncture Site pCO2 pO2 HCO3 ABG pH ABG Total CO2 ABG O2 Saturation ABG Base Excess Oskar Test ABG Potassium Sodium 144 Chloride 101 Glucose Lactate Liter Flow Potassium 4.2 Carbon Dioxide 31 H Anion Gap 16 BUN 17 Creatinine 0.9 Est GFR ( Amer) > 60 Est GFR (Non-Af Amer) > 60 Random Glucose 133 H Hemoglobin A1c Calcium 9.0 Phosphorus 3.8 Magnesium 1.7 Total Bilirubin 0.7 AST 45 ALT 58 Alkaline Phosphatase 107 Total Protein 7.9 Albumin 3.3 L Globulin 4.6 H Albumin/Globulin Ratio 0.7 L Arterial Blood Potassium Mycoplasma pneumon IgM 07/15/17 07/15/17 07/15/17 07:27 07:27 13:27 WBC RBC Hgb Hct MCV MCH MCHC RDW Plt Count MPV Neut % (Auto) Lymph % (Auto) [place] % (Auto) Eos % (Auto) Baso % (Auto) Neut # (Auto) Lymph # (Auto) [place] # (Auto) Eos # (Auto) Baso # (Auto) Neutrophils % (Manual) Lymphocytes % (Manual) Monocytes % (Manual) Toxic Granulation Platelet Estimate Anisocytosis (manual) APTT 53 H D 45 H D Puncture Site pCO2 pO2 HCO3 ABG pH ABG Total CO2 ABG O2 Saturation ABG Base Excess Oskar Test ABG Potassium Sodium 143 Chloride 99 Glucose Lactate Liter Flow Potassium 4.0 Carbon Dioxide 32 H Anion Gap 16 BUN 21 H Creatinine 1.0 Est GFR ( Amer) > 60 Est GFR (Non-Af Amer) > 60 Random Glucose 198 H Hemoglobin A1c Calcium 9.4 Phosphorus Magnesium Total Bilirubin 1.0 AST 37 ALT 56 Alkaline Phosphatase 108 Total Protein 7.8 Albumin 3.2 L Globulin 4.7 H Albumin/Globulin Ratio 0.7 L Arterial Blood Potassium Mycoplasma pneumon IgM Assessment & Plan (1) PNA (pneumonia) Status: Acute Comment: bilateral infiltrate. Continue IV antibiotics. Check pro calcitonin level. bronchoscopy and biopsy if no change. Cardiac workup. Echocardiogram. Continue Lasix (2) CHF (congestive heart failure) Status: Acute (3) NSTEMI (non-ST elevated myocardial infarction) Status: Acute
--- NOTE | 2017-07-15 20:01 | PN ---
DATE: 07/15/2017 SUBJECTIVE: The patient was seen and examined at bedside. Events from last night noted I was not notified by either RN or the covering resident regarding overnight events. The patient was in respiratory distress. Basic workup was done. Given Lasix, nebulizer treatment, IV fluids were discontinued and the patient was started on BiPAP with improved respiratory status. This morning when I examined, he is feeling much better. Denies any headache or dizziness. Denies any chest pain, shortness of breath or wheezing. Denies any nausea, vomiting, abdominal pain, diarrhea or constipation. Denies any other urinary complaints. Denies any leg pain or leg cramps. All other systems reviewed and were found to be negative. PHYSICAL EXAMINATION: GENERAL: Elderly male lying in bed in no acute distress. VITAL SIGNS: Blood pressure 113/70, pulse 81, respirations 20, and O2 sat 98% on 2 liters nasal cannula. Intake was 1180 and output was 2400. HEENT: Pupils equal, round and reacting to light and accommodation. Extraocular muscles intact. No icterus. No pallor. No oral thrush. No pharyngeal congestion. NECK: Supple. No JVD. LUNGS: Bilateral vesicular breath sounds. Bilateral basal crackles heard. CVS: S1 and S2 present, regular. ABDOMEN: Soft and nontender. Bowel sounds present. No guarding. No rigidity. No rebound tenderness noted. ROOM SERVICE ASSOCIATE: Alert, awake and oriented x3. No focal deficits noted. EXTREMITIES: No edema. Palpable peripheral pulses. MEDICATIONS: Include Tylenol 650 mg p.o. every 6 hours p.r.n., DuoNeb every 6 hours, aspirin 325 mg daily, Zithromax 500 mg daily, Rocephin 1 gm daily, Lasix 40 mg IV push daily, Robitussin as needed, heparin drip, metoprolol 25 mg p.o. b.i.d. LABORATORY DATA: Labs from this morning; WBC 11.6, hemoglobin 13.2, hematocrit 38.1 and platelets 315. ABG on 3 liters O2 shows pH 7.51, pCO2 31, pO2 45 with O2 saturations at 87%. Sodium 143, potassium 4, chloride 99, bicarb 32, BUN 21, creatinine 1, glucose 198, hemoglobin A1c 5.8, calcium 9.4, phosphorus 3.8, magnesium 1.7, total bilirubin 1, AST 37, ALT 56, alkaline phosphatase 108, total protein 7.8, albumin 3.2. Legionella and mycoplasma negative. Blood cultures were negative. Urine culture negative. CT of the chest consistent with bilateral diffuse infiltrates as well as mild right and minimal left pleural effusion, mild pericardial effusion, significant mediastinal lymphadenopathy identified. ASSESSMENT AND PLAN: Elderly male with no prior history other than chronic back pain admitted for bilateral lung infiltrates with mediastinal lymphadenopathy, elevated troponin level, pulmonary embolus ruled out status post acute respiratory distress probably secondary to hydration. We will continue with gentle diuresis. We will hold IV fluids. Continue with Rocephin and Zithromax. Continue with aspirin and metoprolol. We will request Pulmonary evaluation. Follow up with Cardiology regarding further treatment plan from cardiac standpoint. Echo was ordered on 07/13/2017 and has not been done yet. We will follow up with echo results once it is done probably in a.m. We will monitor patient respiratory status closely. We will request Pulmonary evaluation. Continue with nebulizer treatments and antibiotics. Further cardiac recommendations as per Dr. Lora. Marisol Bishop MD
[2017-07-16] MEDS: Albuterol-Ipratrop 3 mg / 0.5 (3 ml) UD INH SCH ×4 (01:08→19:40)
[2017-07-16 06:32] LABS: BASO % 0.2 % (0.0-2.0); HEMOGLOBIN 11.7 g/dL (12.0-18.0); LYMPH # 1.5 K/uL (1.0-4.3); LYMPH % 7.5 % (20.0-40.0); MEAN CELL VOLUME 91.3 fL (80.0-94.0); MEAN CORPUSCULAR HEMOGLOBIN 30.3 pg (27.0-31.0); MEAN CORPUSCULAR HGB CONC 33.1 g/dL (33.0-37.0); MEAN PLATELET VOLUME 8.3 fL (7.2-11.7); MONO % 5.1 % (0.0-10.0); NEUT # 17.7 K/uL (1.8-7.0); NEUT % 87.2 % (50.0-75.0); PLATELET COUNT 322 K/uL (130-400); RBC 3.86 Mil/uL (4.40-5.90); RED CELL DISTRIBUTION WIDTH 14.2 % (11.5-14.5); WHITE BLOOD COUNT 20.3 K/uL (4.8-10.8)
[2017-07-16 07:18] LABS: ALB/GLOB RATIO 0.7 (1.0-2.1); ALBUMIN 3.1 g/dL (3.5-5.0); ALT/SGPT 49 U/L (21-72); AST/SGOT 43 U/L (17-59); BLOOD UREA NITROGEN 43 mg/dL (9-20); CALCIUM 9.3 mg/dl (8.6-10.4); GFR AFRICAN-AMERICAN > 60; GFR NON-AFRICAN AMERICAN > 60
[2017-07-16 08:12] LABS: BANDS 1 % (0-2); LYMPHOCYTE 6 % (20-40); MONOCYTE 7 % (0-10); NEUTROPHIL 86 % (50-75); TOTAL CELLS COUNTED 100
[2017-07-16 08:14] LABS: PLATELET ESTIMATE NORMAL (NORMAL)
[2017-07-16] MEDS ORDERED: Heparin25000 units/250ml 1/2NS 25,000 UNITS/250 ML BAG IV PRN (08:30)
--- NOTE | 2017-07-16 09:25 | CP.PCM.PN ---
Subjective - Date & Time of Evaluation Date of Evaluation: 07/16/17 Time of Evaluation: 09:23 - Subjective Subjective: had INDUSTRIAL ELECTRICAL TECHNICIAN for SOB over the weekend CT chest bilateral effusions with superimposed pneumonia lasix and abx given Echo pending Objective - Vital Signs/Intake and Output Vital Signs (last 24 hours): Temp Pulse Resp BP Pulse Ox 97.6 F 91 H 20 110/73 96 07/16/17 07:10 07/16/17 08:00 07/16/17 07:10 07/16/17 07:10 07/16/17 07:10 Intake and Output: 07/16/17 07/16/17 06:59 18:59 Intake Total 220.4 Output Total 700 Balance -479.6 - Medications Medications: Current Medications Acetaminophen (Tylenol 325mg Tab) 650 mg PO Q6 PRN PRN Reason: Pain, moderate (4-7) Albuterol/Ipratropium (Duoneb 3 Mg/0.5 Mg (3 Ml) Ud) 3 ml INH RQ6 [facility] Last Admin: 07/16/17 07:34 Dose: 3 ml Aspirin (Aspirin) 325 mg PO DAILY [facility] Last Admin: 07/15/17 10:10 Dose: 325 mg Furosemide (Lasix) 40 mg IVP DAILY [facility] Guaifenesin (Robitussin) 200 mg PO Q6H PRN PRN Reason: Cough and congestion Last Admin: 07/15/17 09:57 Dose: 200 mg Heparin Sodium (Porcine) (Heparin) 2,400 units IVP ONCE ONE Stop: 07/16/17 10:01 Azithromycin 500 mg/ Sodium (Chloride) 250 mls @ 250 mls/hr IVPB DAILY [facility] PRN Reason: Protocol Last Admin: 07/15/17 09:58 Dose: 250 mls/hr Ceftriaxone Sodium 1 gm/ (Sodium Chloride) 100 mls @ 100 mls/hr IVPB DAILY [facility] PRN Reason: Protocol Last Admin: 07/15/17 09:58 Dose: 100 mls/hr Heparin Sodium/Sodium Chloride (Heparin 83487 Units/250ml 1/2 Normal Saline) 25 ,000 units in 250 mls @ 12.918 mls/hr IV .[id number] PRN; Protocol; 16 UNITS/KG/HR PRN Reason: PROTOCOL Metoprolol Tartrate (Lopressor) 25 mg PO BID [facility] Last Admin: 07/15/17 19:00 Dose: 25 mg - Labs Labs: 07/16/17 06:23 07/16/17 06:23 PT 16.9 SECONDS (9.7-12.2) H 07/13/17 16:48 INR 1.5 07/13/17 16:48 APTT 37 SECONDS (21-34) H D 07/16/17 06:23 - Constitutional Appears: Well - Head Exam Head Exam: ATRAUMATIC, NORMAL INSPECTION, NORMOCEPHALIC - Eye Exam Eye Exam: EOMI, Normal appearance, PERRL Pupil Exam: NORMAL ACCOMODATION, PERRL - ENT Exam ENT Exam: Mucous Membranes Moist, Normal Exam - Neck Exam Neck Exam: Full ROM, Normal Inspection. absent: Lymphadenopathy - Respiratory Exam Respiratory Exam: Clear to Ausculation Bilateral, NORMAL BREATHING PATTERN - Cardiovascular Exam Cardiovascular Exam: REGULAR RHYTHM, +S1, +S2. absent: Murmur - GI/Abdominal Exam GI & Abdominal Exam: Soft, Normal Bowel Sounds. absent: Tenderness - Extremities Exam Extremities Exam: Full ROM, Normal Capillary Refill, Normal Inspection. absent : Joint Swelling, Pedal Edema - Back Exam Back Exam: NORMAL INSPECTION - Neurological Exam Neurological Exam: Alert, Awake, CN II-XII Intact, Normal Gait, Oriented x3 - Psychiatric Exam Psychiatric exam: Normal Affect, Normal Mood - Skin Skin Exam: Dry, Intact, Normal Color, Warm Assessment and Plan (1) CHF (congestive heart failure) Assessment & Plan: echo pending lasix bb add acei Status: Acute (2) NSTEMI (non-ST elevated myocardial infarction) Assessment & Plan: IV heparin asa, bb, statins plan for cath once pulm status improves Status: Acute (3) PNA (pneumonia) Status: Acute (4) Troponin level elevated Status: Acute
[2017-07-16] MEDS ORDERED: Potassium Chloride 20 mEq ER Tab PO ONE (10:39)
[2017-07-16] MEDS: Azithromycin 500 MG in Sodium Chloride 0.9% 250 ML IVPB SCH (10:54)
--- NOTE | 2017-07-16 12:11 | CARD ---
APPROVED REPORT EKG Measurement Heart [id number] <Conclusion> Sinus tachycardia Possible Left atrial enlargement Left ventricular hypertrophy with repolarization abnormality Abnormal ECG
--- NOTE | 2017-07-16 12:26 | CP.PCM.PN ---
Subjective - Date & Time of Evaluation Date of Evaluation: 07/16/17 Time of Evaluation: 12:30 - Subjective Subjective: Progress note dictated # [id number] Objective - Vital Signs/Intake and Output Vital Signs (last 24 hours): Temp Pulse Resp BP Pulse Ox 97.6 F 91 H 20 103/65 96 07/16/17 07:10 07/16/17 08:00 07/16/17 07:10 07/16/17 09:42 07/16/17 07:10 Intake and Output: 07/16/17 07/16/17 06:59 18:59 Intake Total 220.4 Output Total 700 Balance -479.6 - Medications Medications: Current Medications Acetaminophen (Tylenol 325mg Tab) 650 mg PO Q6 PRN PRN Reason: Pain, moderate (4-7) Albuterol/Ipratropium (Duoneb 3 Mg/0.5 Mg (3 Ml) Ud) 3 ml INH RQ6 [facility] Last Admin: 07/16/17 07:34 Dose: 3 ml Aspirin (Aspirin) 325 mg PO DAILY [facility] Last Admin: 07/16/17 09:39 Dose: 325 mg Furosemide (Lasix) 40 mg IVP DAILY [facility] Last Admin: 07/16/17 09:42 Dose: 40 mg Guaifenesin (Robitussin) 200 mg PO Q6H PRN PRN Reason: Cough and congestion Last Admin: 07/15/17 09:57 Dose: 200 mg Azithromycin 500 mg/ Sodium (Chloride) 250 mls @ 250 mls/hr IVPB DAILY [facility] PRN Reason: Protocol Last Admin: 07/16/17 10:54 Dose: 250 mls/hr Ceftriaxone Sodium 1 gm/ (Sodium Chloride) 100 mls @ 100 mls/hr IVPB DAILY [facility] PRN Reason: Protocol Last Admin: 07/16/17 09:39 Dose: 100 mls/hr Heparin Sodium/Sodium Chloride (Heparin 76643 Units/250ml 1/2 Normal Saline) 25 ,000 units in 250 mls @ 12.918 mls/hr IV .[id number] PRN; Protocol; 16 UNITS/KG/HR PRN Reason: PROTOCOL Last Admin: 07/16/17 09:55 Dose: 16 units/kg/hr, 12.918 mls/hr Metoprolol Tartrate (Lopressor) 25 mg PO BID [facility] Last Admin: 07/16/17 09:42 Dose: 25 mg - Labs Labs: 07/16/17 06:23 07/16/17 06:23 PT 16.9 SECONDS (9.7-12.2) H 07/13/17 16:48 INR 1.5 07/13/17 16:48 APTT 37 SECONDS (21-34) H D 07/16/17 06:23
--- NOTE | 2017-07-16 12:27 | CARD ---
APPROVED REPORT EXAM: Two-dimensional and M-mode echocardiogram with Doppler and color Doppler. Other Information Quality : GoodRhythm : INDICATION Dizziness and Vertigo Chest Pain Congestive Heart Failure Non STEMI ELEVATED TROPONIN 2D DIMENSIONS IVSd1.7 (0.7-1.1cm)LVDd4.8 (3.9-5.9cm) LVOT Diameter2.1 (1.8-2.4cm)PWd1.3 (0.7-1.1cm) LVDs3.4 (2.5-4.0cm)FS (%) 29.7 % LVEF (%)35.0 (>50%) M-Mode DIMENSIONS Left Atrium (MM)5.26 (2.5-4.0cm)Aortic Root2.99 (2.2-3.7cm) Aortic Cusp Exc.1.52 (1.5-2.0cm) Aortic Valve AoV Peak Pvdduywf950.1cm/sAoV VTI86.5cmAO Peak GR.59mmHg LVOT Peak Dymdxsiu99.7cm/sLVOT VTI20.57cmAO Mean GR.39mmHg NEFTALI (VMAX)0.33ng9ECI (VTI)0.71nt3KR P 1/2 Kbvn362eh Mitral Valve MV E Eduujuxp505.0cm/sMV A Gbhxldql983.9cm/sE/A ratio1.1 TDI E/Lateral E'0.0E/Medial E'0.0 Tricuspid Valve TR Peak Fhpuchrd015og/sTR Peak Gr.16wmMlNZXQ39nvPj LEFT VENTRICLE The left ventricle is normal size. There is mild concentric left ventricular hypertrophy. The systolic function is moderately impaired. Regional wall motion abnormalities noted. LATERAL WALL. Tissue Doppler imaging reveals severe left ventricular diastolic dysfunction. No left ventricle thrombus noted on this study. There is no ventricular septal defect visualized. There is no left ventricular aneurysm. There is no mass noted in the left ventricle. RIGHT VENTRICLE The right ventricle is normal size. The right ventricular systolic function is normal. ATRIA The left atrium is moderately dilated. The right atrium size is normal. AORTIC VALVE The aortic valve is calcified and displays decreased opening. No aortic regurgitation is present. There is severe valvular aortic stenosis. There is no aortic valvular vegetation. MITRAL VALVE Mitral annular calcification is mild to moderate. There is no mitral valve stenosis. Mitral regurgitation is mild. TRICUSPID VALVE The tricuspid valve is normal in structure. There is mild to moderate tricuspid regurgitation. PULMONIC VALVE The pulmonary valve is normal in structure. There is no pulmonic valvular regurgitation. GREAT VESSELS The aortic root is normal in size. The IVC is normal in size and collapses >50% with inspiration. PERICARDIAL EFFUSION There is no pericardial effusion. <Conclusion> There is mild concentric left ventricular hypertrophy. The systolic function is moderately impaired. Regional wall motion abnormalities noted. LATERAL WALL. Tissue Doppler imaging reveals severe left ventricular diastolic dysfunction. The left atrium is moderately dilated. There is severe valvular aortic stenosis. Mitral regurgitation is mild. There is mild to moderate tricuspid regurgitation. LVEF IS 35%.
--- NOTE | 2017-07-16 16:02 | CP.PCM.PN ---
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 Objective - Vital Signs/Intake and Output Vital Signs (last 24 hours): Temp Pulse Resp BP Pulse Ox 98.1 F 98 H 29 H 99/65 L 96 07/16/17 15:49 07/16/17 15:49 07/16/17 15:49 07/16/17 15:49 07/16/17 15:49 Intake and Output: 07/16/17 07/16/17 06:59 18:59 Intake Total 220.4 848.4 Output Total 700 Balance -479.6 848.4 - Medications Medications: Current Medications Acetaminophen (Tylenol 325mg Tab) 650 mg PO Q6 PRN PRN Reason: Pain, moderate (4-7) Albuterol/Ipratropium (Duoneb 3 Mg/0.5 Mg (3 Ml) Ud) 3 ml INH RQ6 [facility] Last Admin: 07/16/17 13:23 Dose: Not Given Aspirin (Aspirin) 325 mg PO DAILY [facility] Last Admin: 07/16/17 09:39 Dose: 325 mg Furosemide (Lasix) 40 mg IVP DAILY [facility] Last Admin: 07/16/17 09:42 Dose: 40 mg Guaifenesin (Robitussin) 200 mg PO Q6H PRN PRN Reason: Cough and congestion Last Admin: 07/15/17 09:57 Dose: 200 mg Azithromycin 500 mg/ Sodium (Chloride) 250 mls @ 250 mls/hr IVPB DAILY [facility] PRN Reason: Protocol Last Admin: 07/16/17 10:54 Dose: 250 mls/hr Ceftriaxone Sodium 1 gm/ (Sodium Chloride) 100 mls @ 100 mls/hr IVPB DAILY [facility] PRN Reason: Protocol Last Admin: 07/16/17 09:39 Dose: 100 mls/hr Heparin Sodium/Sodium Chloride (Heparin 13850 Units/250ml 1/2 Normal Saline) 25 ,000 units in 250 mls @ 12.918 mls/hr IV .[id number] PRN; Protocol; 16 UNITS/KG/HR PRN Reason: PROTOCOL Last Admin: 07/16/17 09:55 Dose: 16 units/kg/hr, 12.918 mls/hr Metoprolol Tartrate (Lopressor) 25 mg PO BID [facility] Last Admin: 07/16/17 09:42 Dose: 25 mg - Labs Labs: 07/16/17 06:23 07/16/17 06:23 PT 16.9 SECONDS (9.7-12.2) H 07/13/17 16:48 INR 1.5 07/13/17 16:48 APTT 37 SECONDS (21-34) H D 07/16/17 06:23 - Head Exam Head Exam: ATRAUMATIC, NORMOCEPHALIC - Eye Exam Eye Exam: Normal appearance - ENT Exam ENT Exam: Mucous Membranes Moist - Neck Exam Neck Exam: Normal Inspection - Respiratory Exam Respiratory Exam: Rales - Cardiovascular Exam Cardiovascular Exam: REGULAR RHYTHM - GI/Abdominal Exam GI & Abdominal Exam: Soft, Normal Bowel Sounds - Extremities Exam Extremities Exam: Normal Inspection - Neurological Exam Neurological Exam: Alert Assessment and Plan (1) PNA (pneumonia) Assessment & Plan: continue IV antibiotics Check ESR, RF. C ANCA Start IV steroids Continue nebulizer treatment Echocardiogram Status: Acute (2) CHF (congestive heart failure) Status: Acute (3) NSTEMI (non-ST elevated myocardial infarction) Status: Acute
[2017-07-16] MEDS: Heparin25000 units/250ml 1/2NS 25,000 UNITS/250 ML BAG IV PRN (20:04)
--- NOTE | 2017-07-16 22:23 | PN ---
DATE: SUBJECTIVE: The patient was seen and examined at bedside. The patient is less short of breath today. Denies any new complaints. All other systems reviewed and was found to be negative. PHYSICAL EXAMINATION: GENERAL: Elderly male, lying in bed, in no acute distress. VITAL SIGNS: Blood pressure 103/65, pulse 98, respirations 20, temperature 98.1 degrees Fahrenheit, O2 saturation is 96% on room air. HEENT: Pupils are equal, round, and reacting to light and accommodation. Extraocular muscles are intact. No icterus. No pallor. No oral thrush. No pharyngeal congestion. NECK: Supple. No JVD. No thyromegaly. CHEST: Moving equally bilaterally on respirations. LUNGS: Bilateral vesicular breath sounds. Bilateral occasional wheezing. There is some rhonchi present. CVS: S1, S2 present. Regular. ABDOMEN: Soft and nontender. Bowel sounds present. No guarding. No rigidity. No rebound tenderness noted. 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 No focal deficits noted. EXTREMITIES: No edema. Palpable peripheral pulses. MEDICATIONS: Include Tylenol 325 mg p.o. as needed, DuoNeb, azithromycin 500 mg daily, Rocephin 1 gm daily, Lasix 40 mg IV push daily, Robitussin as needed, heparin drip, Solu-Medrol 60 mg IV every 8 hours, metoprolol 25 mg p.o. b.i.d. LABORATORY DATA: From this morning, WBC 20.3, hemoglobin 11.7, hematocrit 35.3, platelets 322. Sodium 143, potassium 3.5, chloride 99, bicarbonate 28, BUN 43, creatinine 1, glucose 151, calcium 9.3, total bilirubin 0.8, AST 43, ALT 49, alkaline phosphatase 124, total protein 7.7, albumin 3.1. Blood culture is negative. Urine culture negative. ASSESSMENT AND PLAN: Elderly male with no significant past medical history other than chronic back pain. Admitted for bilateral infiltrates, both alveolar and interstitial infiltrates. Elevated troponins. Elevated WBCs. Status post respiratory distress; improved with BiPAP, Lasix and nebulizer treatment. We will continue with current antibiotics. Cardiology and Pulmonary consult appreciated. Echocardiogram was done this morning. We will follow up with the echo results. We will repeat the labs in the morning. Marisol Bishop MD [facility] # [id number]
[2017-07-17] MEDS: Albuterol-Ipratrop 3 mg / 0.5 (3 ml) UD INH SCH ×4 (01:37→19:30)
[2017-07-17] MEDS: Heparin25000 units/250ml 1/2NS 25,000 UNITS/250 ML BAG IV PRN (05:35)
[2017-07-17] MEDS: guaiFENesin 200 mg/10 ml Syrup UD PO PRN (09:59)
[2017-07-17] MEDS: Azithromycin 500 MG in Sodium Chloride 0.9% 250 ML IVPB SCH (10:00)
--- NOTE | 2017-07-17 10:06 | CP.PCM.PN ---
Subjective - Date & Time of Evaluation Date of Evaluation: 07/17/17 Time of Evaluation: 10:15 - Subjective Subjective: Progress note dictated #[id number] Objective - Vital Signs/Intake and Output Vital Signs (last 24 hours): Temp Pulse Resp BP Pulse Ox 98.1 F 104 H 20 124/76 96 07/17/17 08:41 07/17/17 08:41 07/17/17 08:41 07/17/17 08:41 07/17/17 08:41 Intake and Output: 07/17/17 07/17/17 06:59 18:59 Intake Total 873.7 Output Total 575 Balance 298.7 - Medications Medications: Current Medications Acetaminophen (Tylenol 325mg Tab) 650 mg PO Q6 PRN PRN Reason: Pain, moderate (4-7) Albuterol/Ipratropium (Duoneb 3 Mg/0.5 Mg (3 Ml) Ud) 3 ml INH RQ6 [facility] Last Admin: 07/17/17 08:43 Dose: 3 ml Aspirin (Aspirin) 325 mg PO DAILY [facility] Last Admin: 07/16/17 09:39 Dose: 325 mg Furosemide (Lasix) 40 mg IVP DAILY [facility] Last Admin: 07/16/17 09:42 Dose: 40 mg Guaifenesin (Robitussin) 200 mg PO Q6H PRN PRN Reason: Cough and congestion Last Admin: 07/15/17 09:57 Dose: 200 mg Azithromycin 500 mg/ Sodium (Chloride) 250 mls @ 250 mls/hr IVPB DAILY [facility] PRN Reason: Protocol Last Admin: 07/16/17 10:54 Dose: 250 mls/hr Ceftriaxone Sodium 1 gm/ (Sodium Chloride) 100 mls @ 100 mls/hr IVPB DAILY [facility] PRN Reason: Protocol Last Admin: 07/16/17 09:39 Dose: 100 mls/hr Heparin Sodium/Sodium Chloride (Heparin 26807 Units/250ml 1/2 Normal Saline) 25 ,000 units in 250 mls @ 14.451 mls/hr IV .[id number] PRN; Protocol; 18 UNITS/KG/HR PRN Reason: ADJUST RATE PER PROTOCOL Last Admin: 07/17/17 05:35 Dose: 18 units/kg/hr, 14.451 mls/hr Methylprednisolone (Solu-Medrol) 60 mg IV Q8H [facility] Last Admin: 07/17/17 00:35 Dose: 60 mg Metoprolol Tartrate (Lopressor) 25 mg PO BID [facility] Last Admin: 07/16/17 17:00 Dose: Not Given - Labs Labs: 07/16/17 06:23 07/16/17 06:23 PT 16.9 SECONDS (9.7-12.2) H 07/13/17 16:48 INR 1.5 07/13/17 16:48 APTT 52 SECONDS (21-34) H D 07/17/17 02:18
--- NOTE | 2017-07-17 10:53 | CP.PCM.PN ---
Subjective - Date & Time of Evaluation Date of Evaluation: 07/17/17 Time of Evaluation: 10:50 - Subjective Subjective: EF 35% with lateral WMA with white count trending up Objective - Vital Signs/Intake and Output Vital Signs (last 24 hours): Temp Pulse Resp BP Pulse Ox 98.1 F 104 H 20 130/76 96 07/17/17 08:41 07/17/17 08:41 07/17/17 08:41 07/17/17 10:00 07/17/17 08:41 Intake and Output: 07/17/17 07/17/17 06:59 18:59 Intake Total 873.7 Output Total 575 Balance 298.7 - Medications Medications: Current Medications Acetaminophen (Tylenol 325mg Tab) 650 mg PO Q6 PRN PRN Reason: Pain, moderate (4-7) Albuterol/Ipratropium (Duoneb 3 Mg/0.5 Mg (3 Ml) Ud) 3 ml INH RQ6 [facility] Last Admin: 07/17/17 08:43 Dose: 3 ml Aspirin (Aspirin) 325 mg PO DAILY [facility] Last Admin: 07/17/17 09:59 Dose: 325 mg Furosemide (Lasix) 40 mg IVP DAILY [facility] Last Admin: 07/17/17 10:00 Dose: 40 mg Guaifenesin (Robitussin) 200 mg PO Q6H PRN PRN Reason: Cough and congestion Last Admin: 07/17/17 09:59 Dose: 200 mg Azithromycin 500 mg/ Sodium (Chloride) 250 mls @ 250 mls/hr IVPB DAILY [facility] PRN Reason: Protocol Last Admin: 07/17/17 10:00 Dose: 250 mls/hr Ceftriaxone Sodium 1 gm/ (Sodium Chloride) 100 mls @ 100 mls/hr IVPB DAILY [facility] PRN Reason: Protocol Last Admin: 07/17/17 10:00 Dose: 100 mls/hr Heparin Sodium/Sodium Chloride (Heparin 28620 Units/250ml 1/2 Normal Saline) 25 ,000 units in 250 mls @ 14.451 mls/hr IV .[id number] PRN; Protocol; 18 UNITS/KG/HR PRN Reason: ADJUST RATE PER PROTOCOL Last Admin: 07/17/17 05:35 Dose: 18 units/kg/hr, 14.451 mls/hr Methylprednisolone (Solu-Medrol) 60 mg IV Q8H [facility] Last Admin: 07/17/17 08:30 Dose: 60 mg Metoprolol Tartrate (Lopressor) 25 mg PO BID [facility] Last Admin: 07/17/17 09:59 Dose: 25 mg - Labs Labs: 07/16/17 06:23 07/16/17 06:23 PT 16.9 SECONDS (9.7-12.2) H 07/13/17 16:48 INR 1.5 07/13/17 16:48 APTT 52 SECONDS (21-34) H D 07/17/17 02:18 - Constitutional Appears: Well - Head Exam Head Exam: ATRAUMATIC, NORMAL INSPECTION, NORMOCEPHALIC - Eye Exam Eye Exam: EOMI, Normal appearance, PERRL Pupil Exam: NORMAL ACCOMODATION, PERRL - ENT Exam ENT Exam: Mucous Membranes Moist, Normal Exam - Neck Exam Neck Exam: Full ROM, Normal Inspection. absent: Lymphadenopathy - Respiratory Exam Respiratory Exam: Clear to Ausculation Bilateral, NORMAL BREATHING PATTERN - Cardiovascular Exam Cardiovascular Exam: REGULAR RHYTHM, +S1, +S2, Murmur - GI/Abdominal Exam GI & Abdominal Exam: Soft, Normal Bowel Sounds. absent: Tenderness - Extremities Exam Extremities Exam: Full ROM, Normal Capillary Refill, Normal Inspection. absent : Joint Swelling, Pedal Edema - Back Exam Back Exam: NORMAL INSPECTION - Neurological Exam Neurological Exam: Alert, Awake, CN II-XII Intact, Oriented x3 - Psychiatric Exam Psychiatric exam: Normal Affect, Normal Mood - Skin Skin Exam: Dry, Intact, Normal Color, Warm Assessment and Plan (1) CHF (congestive heart failure) Assessment & Plan: new onset systolic CHF with acute decompensation EF 35% with lateral WMA cont lasix cont bb add low dose acei etiology ? Status: Acute (2) NSTEMI (non-ST elevated myocardial infarction) Assessment & Plan: cont IV heparin plan for LHCx once pulm status improves cont asa, bb statins Status: Acute (3) PNA (pneumonia) Status: Acute (4) Troponin level elevated Status: Acute (5) Aortic stenosis Assessment & Plan: CHcx Status: Acute
[2017-07-17 11:41] LABS: HEMOGLOBIN 12.4 g/dL (12.0-18.0); MEAN CELL VOLUME 92.6 fL (80.0-94.0); MEAN CORPUSCULAR HEMOGLOBIN 30.6 pg (27.0-31.0); MEAN PLATELET VOLUME 8.9 fL (7.2-11.7); RBC 4.06 Mil/uL (4.40-5.90); RED CELL DISTRIBUTION WIDTH 14.2 % (11.5-14.5)
--- NOTE | 2017-07-17 16:55 | CP.PCM.PN ---
Subjective - Date & Time of Evaluation Date of Evaluation: 07/17/17 Time of Evaluation: 12:45 - Subjective Subjective: Patient seen and examined Patient states breathing is much better Denies any cough Denies chest pain Afebrile Possible cardiac cath tomorrow Objective - Vital Signs/Intake and Output Vital Signs (last 24 hours): Temp Pulse Resp BP Pulse Ox 97.3 F L 103 H 20 102/65 96 07/17/17 15:00 07/17/17 15:00 07/17/17 15:00 07/17/17 15:00 07/17/17 15:00 Intake and Output: 07/17/17 07/17/17 06:59 18:59 Intake Total 873.7 750 Output Total 575 Balance 298.7 750 - Medications Medications: Current Medications Acetaminophen (Tylenol 325mg Tab) 650 mg PO Q6 PRN PRN Reason: Pain, moderate (4-7) Albuterol/Ipratropium (Duoneb 3 Mg/0.5 Mg (3 Ml) Ud) 3 ml INH RQ6 [facility] Last Admin: 07/17/17 13:40 Dose: 3 ml Aspirin (Aspirin) 325 mg PO DAILY [facility] Last Admin: 07/17/17 09:59 Dose: 325 mg Furosemide (Lasix) 40 mg IVP DAILY [facility] Last Admin: 07/17/17 10:00 Dose: 40 mg Guaifenesin (Robitussin) 200 mg PO Q6H PRN PRN Reason: Cough and congestion Last Admin: 07/17/17 09:59 Dose: 200 mg Azithromycin 500 mg/ Sodium (Chloride) 250 mls @ 250 mls/hr IVPB DAILY [facility] PRN Reason: Protocol Last Admin: 07/17/17 10:00 Dose: 250 mls/hr Ceftriaxone Sodium 1 gm/ (Sodium Chloride) 100 mls @ 100 mls/hr IVPB DAILY [facility] PRN Reason: Protocol Last Admin: 07/17/17 10:00 Dose: 100 mls/hr Heparin Sodium/Sodium Chloride (Heparin 67978 Units/250ml 1/2 Normal Saline) 25 ,000 units in 250 mls @ 14.451 mls/hr IV .[id number] PRN; Protocol; 18 UNITS/KG/HR PRN Reason: ADJUST RATE PER PROTOCOL Last Admin: 07/17/17 05:35 Dose: 18 units/kg/hr, 14.451 mls/hr Lisinopril (Zestril) 5 mg PO DAILY [facility] Last Admin: 07/17/17 11:18 Dose: 5 mg Methylprednisolone (Solu-Medrol) 60 mg IV Q8H [facility] Last Admin: 07/17/17 08:30 Dose: 60 mg Metoprolol Tartrate (Lopressor) 25 mg PO BID [facility] Last Admin: 07/17/17 09:59 Dose: 25 mg Rosuvastatin Calcium (Crestor) 10 mg PO HS [facility] - Labs Labs: 07/17/17 11:28 07/16/17 06:23 PT 16.9 SECONDS (9.7-12.2) H 07/13/17 16:48 INR 1.5 07/13/17 16:48 APTT 60 SECONDS (21-34) H D 07/17/17 11:28 - Head Exam Head Exam: ATRAUMATIC, NORMOCEPHALIC - Eye Exam Eye Exam: Normal appearance - ENT Exam ENT Exam: Mucous Membranes Moist - Neck Exam Neck Exam: Normal Inspection - Respiratory Exam Respiratory Exam: Rales - Cardiovascular Exam Cardiovascular Exam: REGULAR RHYTHM - GI/Abdominal Exam GI & Abdominal Exam: Soft, Normal Bowel Sounds Assessment and Plan (1) PNA (pneumonia) Assessment & Plan: Unlikely Normal pro calcitonin level Rule out autoimmune Disease/vasculitis continue IV steroids for now Low-risk for cardiac cath repeat ABG before cardiac cath Status: Acute (2) CHF (congestive heart failure) Status: Acute (3) NSTEMI (non-ST elevated myocardial infarction) Status: Acute
[2017-07-17 17:03] LABS: COMPLEMENT C4 34.3 mg/dL (14.0-44.0)
--- NOTE | 2017-07-17 19:56 | PN ---
DATE: 07/17/2017 SUBJECTIVE: The patient was seen and examined at bedside. The patient is feeling slightly better. Shortness of breath improved. All other systems reviewed and were found to be negative. PHYSICAL EXAMINATION: GENERAL: Elderly male, lying in bed, in no acute distress. VITAL SIGNS: Blood pressure 130/76, pulse 104, respirations 20, temperature 98.1 degrees Fahrenheit, O2 saturations 96% on room air. Intake is 1722 mL, output is 575 mL. HEENT: Pupils equal, round, reacting to light and accommodation. Extraocular muscles intact. No icterus. No pallor. No oral thrush. No pharyngeal congestion. NECK: Supple. No JVD. LUNGS: Bilateral vesicular breath sounds. Bilateral basilar crackles heard and occasional wheezing heard. CVS: S1, S2 present. Regular. ABDOMEN: Soft and nontender. Bowel sounds present. No guarding. No rigidity. No rebound tenderness noted. 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 No focal deficits noted. EXTREMITIES: No edema. Palpable peripheral pulses. MEDICATIONS: Include Tylenol 650 mg p.o. every 6 hours p.r.n., DuoNeb, aspirin 325 mg p.o. daily, Zithromax 500 mg daily, Rocephin 1 gm daily, Lasix 40 mg IV daily, Robitussin every six hours, heparin drip on 14.45 mL, Zestril 5 mg daily, Solu-Medrol 60 mg IV every 8 hours, Lopressor 25 mg p.o. b.i.d., Crestor 10 mg nightly. LABORATORY DATA: Labs from today, WBC 13, hemoglobin 12.4, hematocrit 37.6, and platelets 332. Procalcitonin ordered pending results. ESR is 111. ASSESSMENT AND PLAN: Elderly male with past medical history of hypertension, admitted for elevated troponins, progressive worsening of dyspnea on exertion with bilateral lung infiltrates. Elevated white blood cell count, now improving, on intravenous heparin. Continue with aspirin, beta-blockers. On Solu-Medrol and nebulizer treatment. On Rocephin and Zithromax. We will continue with other current therapy. Discussed with Pulmonary and Cardiology. The patient is scheduled for possible cardiac catheterization tomorrow. Marisol Bishop MD [facility] # [id number]
[2017-07-18] MEDS: Albuterol-Ipratrop 3 mg / 0.5 (3 ml) UD INH SCH ×4 (01:04→20:22)
[2017-07-18 06:30] LABS: BASO % 0.1 % (0.0-2.0); HEMOGLOBIN 11.9 g/dL (12.0-18.0); LYMPH # 1.1 K/uL (1.0-4.3); LYMPH % 6.7 % (20.0-40.0); MEAN CELL VOLUME 91.3 fL (80.0-94.0); MEAN PLATELET VOLUME 8.3 fL (7.2-11.7); MONO # 0.5 K/uL (0.0-0.8); MONO % 3.2 % (0.0-10.0); NEUT # 14.7 K/uL (1.8-7.0); NRBC % 0.1 % (0.0-2.0); PLATELET COUNT 334 K/uL (130-400); RBC 3.83 Mil/uL (4.40-5.90); WHITE BLOOD COUNT 16.3 K/uL (4.8-10.8)
[2017-07-18 06:55] LABS: ALB/GLOB RATIO 0.8 (1.0-2.1); ALBUMIN 3.1 g/dL (3.5-5.0); ALT/SGPT 39 U/L (21-72); AST/SGOT 27 U/L (17-59); BLOOD UREA NITROGEN 35 mg/dL (9-20); CALCIUM 9.1 mg/dl (8.6-10.4); GFR AFRICAN-AMERICAN > 60; GFR NON-AFRICAN AMERICAN > 60
[2017-07-18] MEDS ORDERED: Lidocaine 2% MPF (5 ml) Inj ONE (07:55)
[2017-07-18] MEDS ORDERED: Midazolam 2 MG/2 ML VIAL ONE ×2 (07:57→09:07)
[2017-07-18] MEDS ORDERED: Verapamil 2 ML ONE (08:24)
[2017-07-18] MEDS ORDERED: Nitroglycerin 50mg in D5W 50 MG/250 ML BOTTLE IV ONE (08:24)
[2017-07-18 08:35] LABS: BANDS 1 % (0-2); LYMPHOCYTE 7 % (20-40); MONOCYTE 2 % (0-10); NEUTROPHIL 90 % (50-75); PLATELET ESTIMATE NORMAL (NORMAL); TOTAL CELLS COUNTED 100
[2017-07-18 09:24] LABS: VENOUS BLOOD GAS BASE EXCESS 3.7 mmol/L (0.0-2.0); VENOUS BLOOD GAS PCO2 49 mmHg (40-60); VENOUS BLOOD GAS PO2 38 mm/Hg (30-55); VENOUS BLOOD PH 7.39 (7.32-7.43)
[2017-07-18 09:28] LABS: ARTERIAL BLOOD GAS HCO3 26.8 mmol/L (21-28); ARTERIAL BLOOD GAS HEMOGLOBIN 12.8 g/dL (11.7-17.4); ARTERIAL BLOOD GAS O2 SAT 96.7 % (95-98); ARTERIAL BLOOD GAS PCO2 48 mm/Hg (35-45); ARTERIAL BLOOD GAS PH 7.38 (7.35-7.45); ARTERIAL BLOOD GAS PO2 73 mm/Hg (80-100); ARTERIAL BLOOD GAS TCO2 29.9 mmol/L (22-28)
--- NOTE | 2017-07-18 11:08 | CP.PCM.PN ---
Subjective - Date & Time of Evaluation Date of Evaluation: 07/18/17 Time of Evaluation: 11:15 - Subjective Subjective: Progress note dictated #[id number] Objective - Vital Signs/Intake and Output Vital Signs (last 24 hours): Temp Pulse Resp BP Pulse Ox 97.6 F 100 H 20 102/62 94 L 07/18/17 08:29 07/18/17 08:29 07/18/17 08:29 07/18/17 08:29 07/18/17 08:29 Intake and Output: 07/18/17 07/18/17 06:59 18:59 Intake Total 300 Output Total 350 Balance -50 - Medications Medications: Current Medications Acetaminophen (Tylenol 325mg Tab) 650 mg PO Q6 PRN PRN Reason: Pain, moderate (4-7) Albuterol/Ipratropium (Duoneb 3 Mg/0.5 Mg (3 Ml) Ud) 3 ml INH RQ6 [facility] Last Admin: 07/18/17 07:15 Dose: Not Given Aspirin (Aspirin) 325 mg PO DAILY [facility] Last Admin: 07/17/17 09:59 Dose: 325 mg Furosemide (Lasix) 40 mg IVP DAILY [facility] Last Admin: 07/17/17 10:00 Dose: 40 mg Guaifenesin (Robitussin) 200 mg PO Q6H PRN PRN Reason: Cough and congestion Last Admin: 07/17/17 09:59 Dose: 200 mg Azithromycin 500 mg/ Sodium (Chloride) 250 mls @ 250 mls/hr IVPB DAILY [facility] PRN Reason: Protocol Last Admin: 07/17/17 10:00 Dose: 250 mls/hr Ceftriaxone Sodium 1 gm/ (Sodium Chloride) 100 mls @ 100 mls/hr IVPB DAILY [facility] PRN Reason: Protocol Last Admin: 07/17/17 10:00 Dose: 100 mls/hr Heparin Sodium/Sodium Chloride (Heparin 20807 Units/250ml 1/2 Normal Saline) 25 ,000 units in 250 mls @ 14.451 mls/hr IV .[id number] PRN; Protocol; 18 UNITS/KG/HR PRN Reason: ADJUST RATE PER PROTOCOL Last Admin: 07/17/17 05:35 Dose: 18 units/kg/hr, 14.451 mls/hr Lisinopril (Zestril) 5 mg PO DAILY [facility] Last Admin: 07/17/17 11:18 Dose: 5 mg Methylprednisolone (Solu-Medrol) 60 mg IV Q8H [facility] Last Admin: 07/18/17 07:48 Dose: Not Given Metoprolol Tartrate (Lopressor) 25 mg PO BID [facility] Last Admin: 07/17/17 18:24 Dose: Not Given Rosuvastatin Calcium (Crestor) 10 mg PO HS [facility] Last Admin: 07/18/17 00:44 Dose: 10 mg - Labs Labs: 07/18/17 06:23 07/18/17 06:23 PT 16.9 SECONDS (9.7-12.2) H 07/13/17 16:48 INR 1.5 07/13/17 16:48 APTT 28 SECONDS (21-34) D 07/18/17 06:23
[2017-07-18] MEDS: Azithromycin 500 MG in Sodium Chloride 0.9% 250 ML IVPB SCH ×2 (12:14→13:17)
--- NOTE | 2017-07-18 12:55 | CP.PCM.PN ---
<Jose Raul Weiss - Last Filed: 07/18/17 22:18> Subjective - Date & Time of Evaluation Date of Evaluation: 07/18/17 Time of Evaluation: 08:00 - Subjective Subjective: Jose Raul Weiss PGY1 [facility] Progress Note for Dr. Lora Patient undergoing heart cath today no acute overnight events Objective - Vital Signs/Intake and Output Vital Signs (last 24 hours): Temp Pulse Resp BP Pulse Ox 97.6 F 100 H 20 133/81 94 L 07/18/17 08:29 07/18/17 08:29 07/18/17 08:29 07/18/17 11:34 07/18/17 08:29 Intake and Output: 07/18/17 07/18/17 06:59 18:59 Intake Total 300 Output Total 350 Balance -50 - Medications Medications: Current Medications Acetaminophen (Tylenol 325mg Tab) 650 mg PO Q6 PRN PRN Reason: Pain, moderate (4-7) Albuterol/Ipratropium (Duoneb 3 Mg/0.5 Mg (3 Ml) Ud) 3 ml INH RQ6 [facility] Last Admin: 07/18/17 07:15 Dose: Not Given Aspirin (Aspirin) 325 mg PO DAILY [facility] Last Admin: 07/18/17 12:13 Dose: Not Given Furosemide (Lasix) 40 mg IVP DAILY [facility] Last Admin: 07/18/17 12:13 Dose: Not Given Guaifenesin (Robitussin) 200 mg PO Q6H PRN PRN Reason: Cough and congestion Last Admin: 07/17/17 09:59 Dose: 200 mg Azithromycin 500 mg/ Sodium (Chloride) 250 mls @ 250 mls/hr IVPB DAILY [facility] PRN Reason: Protocol Last Admin: 07/18/17 12:14 Dose: Not Given Ceftriaxone Sodium 1 gm/ (Sodium Chloride) 100 mls @ 100 mls/hr IVPB DAILY [facility] PRN Reason: Protocol Last Admin: 07/18/17 12:13 Dose: Not Given Heparin Sodium/Sodium Chloride (Heparin 42891 Units/250ml 1/2 Normal Saline) 25 ,000 units in 250 mls @ 14.451 mls/hr IV .[id number] PRN; Protocol; 18 UNITS/KG/HR PRN Reason: ADJUST RATE PER PROTOCOL Last Admin: 07/17/17 05:35 Dose: 18 units/kg/hr, 14.451 mls/hr Lisinopril (Zestril) 5 mg PO DAILY [facility] Last Admin: 07/18/17 12:13 Dose: Not Given Methylprednisolone (Solu-Medrol) 60 mg IV Q8H [facility] Last Admin: 07/18/17 07:48 Dose: Not Given Metoprolol Tartrate (Lopressor) 25 mg PO BID [facility] Last Admin: 07/18/17 12:13 Dose: Not Given Rosuvastatin Calcium (Crestor) 10 mg PO HS [facility] Last Admin: 07/18/17 00:44 Dose: 10 mg - Labs Labs: 07/18/17 06:23 07/18/17 06:23 PT 16.9 SECONDS (9.7-12.2) H 07/13/17 16:48 INR 1.5 07/13/17 16:48 APTT 28 SECONDS (21-34) D 07/18/17 06:23 - Constitutional Appears: Well - Head Exam Head Exam: NORMAL INSPECTION - Eye Exam Eye Exam: Normal appearance - ENT Exam ENT Exam: Mucous Membranes Moist - Neck Exam Neck Exam: Normal Inspection - Respiratory Exam Respiratory Exam: NORMAL BREATHING PATTERN - Cardiovascular Exam Cardiovascular Exam: RRR - GI/Abdominal Exam GI & Abdominal Exam: Soft, Normal Bowel Sounds. absent: Distended, Tenderness - Extremities Exam Extremities Exam: Normal Inspection - Back Exam Back Exam: NORMAL INSPECTION - Neurological Exam Neurological Exam: Awake - Psychiatric Exam Psychiatric exam: Normal Mood - Skin Skin Exam: Normal Color Assessment and Plan - Assessment and Plan (Free Text) Assessment: 72yo M with PMH of presenting with CHF exacerbation, NSTEMI and pneumonia Plan: 1. CHF exacerbation - EF 35% w/ lateral WMA and - increased Lasix to 40mg IVP q12 - cont BB and ACEi - severe noted on Echo - PFTs and carotid US for pre-op for TAVR 2. NSTEMI - d/c heparin drip - cont ASA and BB - cont statin 3. Pneumonia - cont Rocephin and Zithromax Patient was evaluated and discussed with Dr. Lora <Joshua Lora - Last Filed: 07/19/17 08:42> Objective - Vital Signs/Intake and Output Vital Signs (last 24 hours): Temp Pulse Resp BP Pulse Ox 97.7 F 94 H 20 122/80 95 07/19/17 04:14 07/19/17 08:00 07/19/17 04:14 07/19/17 04:14 07/19/17 04:14 Intake and Output: 07/19/17 07/19/17 06:59 18:59 Intake Total 420 Output Total 1275 Balance -855 - Medications Medications: Current Medications Acetaminophen (Tylenol 325mg Tab) 650 mg PO Q6 PRN PRN Reason: Pain, moderate (4-7) Last Admin: 07/18/17 20:11 Dose: 650 mg Aspirin (Aspirin) 325 mg PO DAILY [facility] Last Admin: 07/18/17 13:16 Dose: 325 mg Furosemide (Lasix) 40 mg IVP Q12 [facility] Last Admin: 07/18/17 21:56 Dose: 40 mg Guaifenesin (Robitussin) 200 mg PO Q6H PRN PRN Reason: Cough and congestion Last Admin: 07/19/17 04:57 Dose: 200 mg Azithromycin 500 mg/ Sodium (Chloride) 250 mls @ 250 mls/hr IVPB DAILY [facility] PRN Reason: Protocol Last Admin: 07/18/17 13:17 Dose: 250 mls/hr Ceftriaxone Sodium 1 gm/ (Sodium Chloride) 100 mls @ 100 mls/hr IVPB DAILY [facility] PRN Reason: Protocol Last Admin: 07/18/17 13:17 Dose: 100 mls/hr Lisinopril (Zestril) 5 mg PO DAILY [facility] Last Admin: 07/18/17 13:17 Dose: 5 mg Methylprednisolone (Solu-Medrol) 60 mg IV Q8H [facility] Last Admin: 07/19/17 08:24 Dose: 60 mg Metoprolol Tartrate (Lopressor) 25 mg PO BID [facility] Last Admin: 07/18/17 18:32 Dose: 25 mg Rosuvastatin Calcium (Crestor) 10 mg PO HS [facility] Last Admin: 07/18/17 21:56 Dose: 10 mg - Labs Labs: 07/18/17 06:23 07/18/17 06:23 PT 16.9 SECONDS (9.7-12.2) H 07/13/17 16:48 INR 1.5 07/13/17 16:48 APTT 28 SECONDS (21-34) D 07/18/17 06:23 Assessment and Plan (1) CHF (congestive heart failure) Status: Acute (2) NSTEMI (non-ST elevated myocardial infarction) Status: Acute (3) PNA (pneumonia) Status: Acute (4) Troponin level elevated Status: Acute (5) Aortic stenosis Status: Acute Attending/Attestation - Attestation I have personally seen and examined this patient.: Yes I have fully participated in the care of the patient.: Yes I have reviewed all pertinent clinical information, including history, physical exam and plan: Yes Notes (Text): 07/19/17 08:41 severe with 2 vessel CAD discussed findings with pt refusing for CT Sx will discuss with CT Sx to review plan STS score of 5.7%
[2017-07-18] MEDS: guaiFENesin 200 mg/10 ml Syrup UD PO PRN (13:16)
--- NOTE | 2017-07-18 15:50 | VASCLAB ---
PROCEDURE: HISTORY: pre-op for TAVR COMPARISON: None available. TECHNIQUE: Grayscale and duplex Doppler evaluation of the cervical carotid and vertebral arteries were performed. The common carotid, carotid bifurcations and cervical Internal Carotid Artery (ICA) and proximal External Carotid Artery (ECA) were evaluated. The vertebral arteries were evaluated for gross patency and flow direction. Report prepared by Baldo Palacio, BS, RVT FINDINGS: RIGHT CAROTID ARTERIES: 1. Common Carotid Artery: No significant focal plaque formation of the right common carotid artery. Maximum Peak Systolic velocity: 84 cm/sec: End-diastolic velocity 15 cm/sec. 2. Carotid Bifurcation: Calcific plaque formation. Maximum Peak Systolic velocity: 76 cm/sec: End-diastolic velocity 13 cm/sec. 3. Internal Carotid Artery: Moderate plaque formation of the right proximal ICA which does not results in hemodynamically significant stenosis. Plaque description: 3.1. Proximal Segment: Peak systolic velocity 94 cm/sec: End-diastolic velocity 25 cm/sec - % stenosis 0-15% 3.2. Middle Segment: Peak systolic velocity 83 cm/sec: End-diastolic velocity 18 cm/sec - % stenosis 0-15% 3.3. Distal Segment: Peak systolic velocity 54 cm/sec: End-diastolic velocity 16 cm/sec - % stenosis 0-15% 4. External Carotid Artery: No significant focal plaque formation. Peak systolic velocity 96 cm/sec 5. ICA/CCA Ratio: 1.1 LEFT CAROTID ARTERIES: 1. Common Carotid Artery: No significant focal plaque formation of the left common carotid artery. Maximum Peak Systolic velocity: 102 cm/sec: End-diastolic velocity 21 cm/sec. 2. Carotid Bifurcation: plaque formation. Maximum Peak Systolic velocity: 115 cm/sec: End-diastolic velocity 19 cm/sec. 3. Internal Carotid Artery: Plaque description: 3.1. Proximal Segment: Peak systolic velocity 60 cm/sec: End-diastolic velocity 16 cm/sec - % stenosis 0-15% 3.2. Middle Segment: Peak systolic velocity 46 cm/sec: End-diastolic velocity 13 cm/sec - % stenosis 0-15% 3.3. Distal Segment: Peak systolic velocity 92 cm/sec: End-diastolic velocity 23 cm/sec - % stenosis 0-15% 4. External Carotid Artery: No significant focal plaque formation. Peak systolic velocity 115 cm/sec 5. ICA/CCA Ratio: 0.9 VERTEBRAL ARTERIES: 1. Right Vertebral Artery: The right vertebral artery flow direction is antegrade. 2. Left Vertebral Artery: The left vertebral artery flow direction is antegrade. OTHER FINDINGS: 1. Right Brachial Blood pressure: 90 mmHg. 2. Left Brachial Blood pressure: 90 mmHg. IMPRESSION: RIGHT: Duplex scan does not suggest hemodynamically significant stenosis of the right extracranial carotid arteries. LEFT: Duplex scan does not suggest hemodynamically significant stenosis of the left extracranial carotid arteries.
--- NOTE | 2017-07-18 16:04 | CP.PCM.PN ---
Subjective - Date & Time of Evaluation Date of Evaluation: 07/18/17 Time of Evaluation: 16:00 - Subjective Subjective: patient seen and examined Status post cardiac cath awaiting final report Complaining of productive cough with dark phlegm Dyspnea on exertion Afebrile No chest pain Objective - Vital Signs/Intake and Output Vital Signs (last 24 hours): Temp Pulse Resp BP Pulse Ox 97.6 F 100 H 20 133/81 94 L 07/18/17 08:29 07/18/17 08:29 07/18/17 08:29 07/18/17 11:34 07/18/17 08:29 Intake and Output: 07/18/17 07/18/17 06:59 18:59 Intake Total 300 600 Output Total 350 Balance -50 600 - Medications Medications: Current Medications Acetaminophen (Tylenol 325mg Tab) 650 mg PO Q6 PRN PRN Reason: Pain, moderate (4-7) Albuterol/Ipratropium (Duoneb 3 Mg/0.5 Mg (3 Ml) Ud) 3 ml INH RQ6 [facility] Last Admin: 07/18/17 13:08 Dose: Not Given Aspirin (Aspirin) 325 mg PO DAILY [facility] Last Admin: 07/18/17 13:16 Dose: 325 mg Furosemide (Lasix) 40 mg IVP Q12 [facility] Guaifenesin (Robitussin) 200 mg PO Q6H PRN PRN Reason: Cough and congestion Last Admin: 07/18/17 13:16 Dose: 200 mg Azithromycin 500 mg/ Sodium (Chloride) 250 mls @ 250 mls/hr IVPB DAILY [facility] PRN Reason: Protocol Last Admin: 07/18/17 13:17 Dose: 250 mls/hr Ceftriaxone Sodium 1 gm/ (Sodium Chloride) 100 mls @ 100 mls/hr IVPB DAILY [facility] PRN Reason: Protocol Last Admin: 07/18/17 13:17 Dose: 100 mls/hr Lisinopril (Zestril) 5 mg PO DAILY [facility] Last Admin: 07/18/17 13:17 Dose: 5 mg Methylprednisolone (Solu-Medrol) 60 mg IV Q8H [facility] Last Admin: 07/18/17 07:48 Dose: Not Given Metoprolol Tartrate (Lopressor) 25 mg PO BID [facility] Last Admin: 07/18/17 12:13 Dose: Not Given Rosuvastatin Calcium (Crestor) 10 mg PO HS [facility] Last Admin: 07/18/17 00:44 Dose: 10 mg - Labs Labs: 07/18/17 06:23 07/18/17 06:23 PT 16.9 SECONDS (9.7-12.2) H 07/13/17 16:48 INR 1.5 07/13/17 16:48 APTT 28 SECONDS (21-34) D 07/18/17 06:23 - Head Exam Head Exam: ATRAUMATIC, NORMOCEPHALIC - ENT Exam ENT Exam: Mucous Membranes Moist - Neck Exam Neck Exam: Normal Inspection - Respiratory Exam Respiratory Exam: Rales, Rhonchi - Cardiovascular Exam Cardiovascular Exam: REGULAR RHYTHM - GI/Abdominal Exam GI & Abdominal Exam: Soft, Normal Bowel Sounds Assessment and Plan (1) PNA (pneumonia) Assessment & Plan: continue IV antibiotics Continue nebulizer treatment Follow-up chest x-ray Taper off steroids ANCA negative LIANA negative Status: Acute (2) CHF (congestive heart failure) Status: Acute (3) NSTEMI (non-ST elevated myocardial infarction) Status: Acute
--- NOTE | 2017-07-18 21:34 | PN ---
DATE: 07/18/2017 SUBJECTIVE: The patient was seen and examined in director labor standards after cardiac catheterization. The patient denies any new complaints. Denies any headache or dizziness. Denies any chest pain. Denies any nausea, vomiting, abdominal pain, diarrhea or constipation. Denies any urinary complaints. Denies any leg pains or leg cramps. All other systems reviewed and were found to be negative. PHYSICAL EXAMINATION: GENERAL: Elderly male lying in bed in no acute distress. VITAL SIGNS: Blood pressure 102/62, pulse 100, respirations 20, temperature 97.6 degrees Fahrenheit, O2 sat 94% on room air. HEENT: Pupils are equal, round, reacting to light and accommodation. Extraocular muscles intact. No icterus. No pallor. No oral thrush. NECK: Supple. No JVD. LUNGS: Bilateral vesicular breath sounds. No wheezing. Occasional basal crackles heard. CVS: S1, S2 present. Regular. ABDOMEN: Soft, nontender. Bowel sounds present. No guarding. No rigidity. No rebound tenderness noted. SHADE HANGER: Alert, awake, and oriented x3. No focal deficits noted. EXTREMITIES: No edema. Palpable peripheral pulses. MEDICATIONS: Include Tylenol 650 mg as needed, DuoNeb, aspirin 325 mg daily, Zithromax 500 mg IV daily, Rocephin 1 gm daily, Lasix 40 mg IV every 12 hours, Robitussin, Zestril 5 mg daily, Solu-Medrol 60 mg IV every 8 hours, Lopressor 25 mg p.o. b.i.d., Crestor 10 mg p.o. at bedtime. LABORATORY DATA: Labs from this morning WBC 16.3, hemoglobin 11.9, hematocrit 34.9 and platelets 334. ABG on room air, pH 7.38, pCO2 48, pO2 73, O2 saturations 93%. Sodium 144, potassium 4.4, chloride 101, bicarb 30, BUN 35, creatinine 1.1, glucose 144, calcium 9.1, AST 27, ALT 39, alkaline phosphatase 100, C-reactive protein 72, total protein 6.9, albumin 3.1, procalcitonin 0.29, LIANA negative, C3 128, C4 34, myeloperoxidase negative, protein S3 is negative. Blood culture negative. Urine culture, no growth. Carotid Doppler shows no significant stenosis of the left or right carotids. ASSESSMENT AND PLAN: Elderly male with prior history of hypertension admitted for pulmonary alveolar and interstitial infiltrates, bilateral pleural effusion, elevated troponins, elevated WBC, status post respiratory distress, status post cardiac catheterization, preliminary report as per Dr. Lora. High grade stenosis in left anterior descending (coronary artery) and circumflex, recommending surgical intervention at this time. He would discuss with the patient regarding surgical option and other options. The patient also has cardiomyopathy with ejection fraction of 35%. Severe aortic stenosis. The patient is on Rocephin and Zithromax. We will continue with current antibiotics, bronchodilators on Solu-Medrol. We will follow up with Pulmonary and Cardiology. Vasculitis workup so far is negative. We will continue with other current medication and treatment. Marisol Bishop MD
--- NOTE | 2017-07-18 23:52 | CARDCATH ---
PROCEDURE DATE: 07/18/2017 CLINICAL INDICATIONS: Mr. Douglass is a 72-year-old male who presented to [facility] with acute onset of shortness of breath and chest pain, described as having a productive brownish sputum, accompanied with severe dyspnea with minimal activity for which he was admitted. On his initial presentation, his troponins were noted to be borderline positive. He underwent a transthoracic echocardiogram, was initiated on medications with IV heparin drip per [facility] protocol. The patient subsequently underwent echocardiogram showing left ventricular ejection fraction of 35% with lateral wall hypokinesis and severe aortic stenosis. The patient subsequently was brought to the crime lab technician after stabilization of his pulmonary status for further evaluation and treatment. PROCEDURE PERFORMED: Complete heart catheterization with selective left and right coronary angiogram via left radial approach and right femoral venous access approach. Right heart cath with hemodynamics and saturations, simultaneously LV and AO gradients with [place] pigtail catheter, left ventriculogram, manual pressure for hemostasis. TECHNIQUES OF PROCEDURE: After obtaining informed consent, the patient was brought to the cardiac cath suite in post-absorptive and non-sedative state. The patient was prepped and draped in the usual sterile fashion, 2% lidocaine was used for infiltration of anesthesia. Using modified Seldinger technique, a 6-American sheath was introduced into the left radial artery. Subsequently, over a J-wire, JL4 and JR4 diagnostic catheters were used to engage the left and right coronary systems. Angiograms were obtained in different orthogonal views. CORONARY ANATOMY: The left main large-sized vessel had ventricularization of pressure on engagement of the catheter with moderate 50% stenosis, that bifurcates into LAD and left circumflex coronary artery. Left circumflex runs in the AV groove, has a proximal high-grade stenosis approximately 95% stenosis. It gives off a smaller obtuse marginal branch which has an ostial 90% stenosis. The circumflex runs in the AV groove has a large sized vessels and gives off a large obtuse marginal branch. Left anterior descending artery has a large sized vessel, has a proximal 40% and a mid 65% stenosis with first diagonal branch. First diagonal branch has an ostial 60% stenosis. RCA calcified with proximal 40% mid to distal 50% stenosis. Right PDA has moderate disease, nonobstructive in nature. IMPRESSION: Severe two-vessel disease involving the left circumflex and left anterior descending artery. Subsequently after obtaining the coronary angiographic findings of the CAD, attention was then paid to across the aortic valve using a JR4 diagnostic catheter. A straight tip Romo wire was used to cross across the aortic valve. Subsequently, simultaneous LV and AO gradients were measured. Subsequently, a right heart catheterization was done via the right femoral venous access. Balloon was inflated and the catheter was advanced serially through the IVC to the RA, RVP, and wedge position. Hemodynamics and saturations were obtained. Right heart cath hemodynamics: RA mean was 10 mmHg, a-wave of 17, v-wave of 13, RV systolic 52, diastolic 2 with RV end-diastolic pressure of 10 mmHg. Pulmonary artery pressure, systolic 54, diastolic 25 with mean of 21. Pulmonary capillary wedge pressure mean was 30, a-wave of 38 and a v-wave of 41. LV systolic was 160, diastolic 14 with LVEDP of 44, AO systolic was 91, diastolic of 57. The LVdp/dt was 1824. The mean transaortic region was 46 mmHg. Aortic valve area was calculated to be 0.49 sq cm. Using the Danny equation and thermodilution method, cardiac output was calculated to be 4.4 L per minute and cardiac index was 2.1 liters per minute per square meter area. IMPRESSION: 1. Severe aortic stenosis. 2. Two-vessel coronary artery disease. 3. Elevated end-diastolic pressure. RECOMMENDATIONS: The patient is to be evaluated for aortic valve replacement versus TAVR with possible revascularization of the LAD and circumflex disease. Joshua Lora MD [place]
[2017-07-19] MEDS: Albuterol-Ipratrop 3 mg / 0.5 (3 ml) UD INH SCH (01:26)
[2017-07-19] MEDS: guaiFENesin 200 mg/10 ml Syrup UD PO PRN (04:57)
--- NOTE | 2017-07-19 08:39 | CP.PCM.PN ---
Addendum entered and electronically signed by Jose Raul Weiss DO 07/20/17 08:32 : - Constitutional Appears: Well, Non-toxic, No Acute Distress - Head Exam Head Exam: NORMAL INSPECTION - Eye Exam Eye Exam: Normal appearance Pupil Exam: NORMAL ACCOMODATION - ENT Exam ENT Exam: Normal Exam - Neck Exam Neck Exam: Normal Inspection - Respiratory Exam Respiratory Exam: Rales (mild), NORMAL BREATHING PATTERN. absent: Respiratory Distress (able to speak in short sentences) - Cardiovascular Exam Cardiovascular Exam: RRR, +S1, +S2, Murmur - GI/Abdominal Exam GI & Abdominal Exam: Normal Bowel Sounds - Extremities Exam Extremities Exam: Full ROM. absent: Pedal Edema - Back Exam Back Exam: Full ROM - Neurological Exam Neurological Exam: Alert, Awake - Psychiatric Exam Psychiatric exam: Normal Mood - Skin Skin Exam: Normal Color Original Note: <Jose Raul Weiss - Last Filed: 07/19/17 17:18> Subjective - Date & Time of Evaluation Date of Evaluation: 07/19/17 Time of Evaluation: 08:38 - Subjective Subjective: Jose Raul Weiss PGY1 [facility] Progress Note for Dr. Lora Patient was seen and examined at bedside. He states that he feels his lungs clearing up a bit and denies chest pain. overall, denies shortness of breath, n/ v/d, fevers/chills, abdominal pain. Objective - Vital Signs/Intake and Output Vital Signs (last 24 hours): Temp Pulse Resp BP Pulse Ox 97.7 F 103 H 20 122/80 95 07/19/17 04:14 07/19/17 04:14 07/19/17 04:14 07/19/17 04:14 07/19/17 04:14 Intake and Output: 07/19/17 07/19/17 06:59 18:59 Intake Total 420 Output Total 1275 Balance -855 - Medications Medications: Current Medications Acetaminophen (Tylenol 325mg Tab) 650 mg PO Q6 PRN PRN Reason: Pain, moderate (4-7) Last Admin: 07/18/17 20:11 Dose: 650 mg Aspirin (Aspirin) 325 mg PO DAILY [facility] Last Admin: 07/18/17 13:16 Dose: 325 mg Furosemide (Lasix) 40 mg IVP Q12 [facility] Last Admin: 07/18/17 21:56 Dose: 40 mg Guaifenesin (Robitussin) 200 mg PO Q6H PRN PRN Reason: Cough and congestion Last Admin: 07/19/17 04:57 Dose: 200 mg Azithromycin 500 mg/ Sodium (Chloride) 250 mls @ 250 mls/hr IVPB DAILY [facility] PRN Reason: Protocol Last Admin: 07/18/17 13:17 Dose: 250 mls/hr Ceftriaxone Sodium 1 gm/ (Sodium Chloride) 100 mls @ 100 mls/hr IVPB DAILY [facility] PRN Reason: Protocol Last Admin: 07/18/17 13:17 Dose: 100 mls/hr Lisinopril (Zestril) 5 mg PO DAILY [facility] Last Admin: 07/18/17 13:17 Dose: 5 mg Methylprednisolone (Solu-Medrol) 60 mg IV Q8H [facility] Last Admin: 07/19/17 08:24 Dose: 60 mg Metoprolol Tartrate (Lopressor) 25 mg PO BID [facility] Last Admin: 07/18/17 18:32 Dose: 25 mg Rosuvastatin Calcium (Crestor) 10 mg PO HS [facility] Last Admin: 07/18/17 21:56 Dose: 10 mg - Labs Labs: 07/18/17 06:23 07/18/17 06:23 PT 16.9 SECONDS (9.7-12.2) H 07/13/17 16:48 INR 1.5 07/13/17 16:48 APTT 28 SECONDS (21-34) D 07/18/17 06:23 - Additional Findings Additional findings: 72yo M with PMH of HTN and pneumonia presenting with CHF exacerbation, NSTEMI and pneumonia. Planned for PFT's today. Plan: 1. CHF exacerbation, likely 2/2 severe - PFT's planned for today - Echo showed EF 35% w/ lateral WMA, severe LV diastolic dysfunction and severe - cath yesterday showed severe aortic stenosis, 2 vessel CAD and elevated EDP; recommending AVR vs TAVR w/ possible revascularization of LAD and circumflex - carotid Duplex doesn't suggest significant hemodynamic stenosis - increased Lasix to 40mg IVP q12 - cont BB and ACEi 2. NSTEMI - d/c heparin drip - cont ASA and BB - cont statin 3. Pneumonia - s/p Rocephin and Zithromax Patient was evaluated and discussed with Dr. Lora <Joshua Lora - Last Filed: 07/22/17 15:40> Objective - Vital Signs/Intake and Output Vital Signs (last 24 hours): Temp Pulse Resp BP Pulse Ox 97.7 F 81 20 105/68 98 07/22/17 15:00 07/22/17 15:00 07/22/17 15:00 07/22/17 15:00 07/22/17 15:00 Intake and Output: 07/22/17 07/22/17 06:59 18:59 Intake Total 240 Output Total 1250 Balance -1010 - Medications Medications: Current Medications Acetaminophen (Tylenol 325mg Tab) 650 mg PO Q6 PRN PRN Reason: Pain, moderate (4-7) Last Admin: 07/18/17 20:11 Dose: 650 mg Amoxicillin/Clavulanate Potassium (Augmentin 875 Mg-125 Mg Tab) 1 tab PO Q12H [facility] PRN Reason: Protocol Aspirin (Aspirin) 325 mg PO DAILY [facility] Last Admin: 07/22/17 10:04 Dose: 325 mg Furosemide (Lasix) 40 mg IVP Q12 [facility] Last Admin: 07/22/17 10:05 Dose: 40 mg Guaifenesin (Robitussin) 200 mg PO Q6H PRN PRN Reason: Cough and congestion Last Admin: 07/20/17 09:21 Dose: 200 mg Azithromycin 500 mg/ Sodium (Chloride) 250 mls @ 250 mls/hr IVPB Q24H [facility] PRN Reason: Protocol Last Admin: 07/22/17 10:05 Dose: 250 mls/hr Ceftriaxone Sodium 1 gm/ (Sodium Chloride) 100 mls @ 100 mls/hr IVPB Q24H [facility] PRN Reason: Protocol Last Admin: 07/22/17 12:08 Dose: 100 mls/hr Lisinopril (Zestril) 5 mg PO DAILY [facility] Last Admin: 07/22/17 10:04 Dose: 5 mg Methylprednisolone (Solu-Medrol) 20 mg IV Q8H [facility] Last Admin: 07/22/17 08:19 Dose: 20 mg Metoprolol Tartrate (Lopressor) 25 mg PO BID [facility] Last Admin: 07/22/17 10:04 Dose: 25 mg Prednisone (Prednisone Tab) 20 mg PO DAILY [facility] Rosuvastatin Calcium (Crestor) 10 mg PO HS [facility] Last Admin: 07/21/17 21:27 Dose: 10 mg - Labs Labs: 07/21/17 06:28 07/21/17 06:28 PT 16.9 SECONDS (9.7-12.2) H 07/13/17 16:48 INR 1.5 07/13/17 16:48 APTT 28 SECONDS (21-34) D 07/18/17 06:23 Assessment and Plan (1) CHF (congestive heart failure) Status: Acute (2) NSTEMI (non-ST elevated myocardial infarction) Status: Acute (3) PNA (pneumonia) Status: Acute (4) Troponin level elevated Status: Acute (5) Aortic stenosis Status: Acute Attending/Attestation - Attestation I have personally seen and examined this patient.: Yes I have fully participated in the care of the patient.: Yes I have reviewed all pertinent clinical information, including history, physical exam and plan: Yes Notes (Text): 07/22/17 15:40 plan for PCi and then TAVR
[2017-07-19] MEDS: Azithromycin 500 MG in Sodium Chloride 0.9% 250 ML IVPB SCH (10:58)
--- NOTE | 2017-07-19 11:01 | CP.PCM.PN ---
Subjective - Date & Time of Evaluation Date of Evaluation: 07/19/17 Time of Evaluation: 10:45 - Subjective Subjective: Progress note dictated #[id number] Objective - Vital Signs/Intake and Output Vital Signs (last 24 hours): Temp Pulse Resp BP Pulse Ox 97.6 F 108 H 20 127/79 94 L 07/19/17 08:42 07/19/17 10:45 07/19/17 08:42 07/19/17 10:56 07/19/17 08:42 Intake and Output: 07/19/17 07/19/17 06:59 18:59 Intake Total 420 Output Total 1275 Balance -855 - Medications Medications: Current Medications Acetaminophen (Tylenol 325mg Tab) 650 mg PO Q6 PRN PRN Reason: Pain, moderate (4-7) Last Admin: 07/18/17 20:11 Dose: 650 mg Aspirin (Aspirin) 325 mg PO DAILY [facility] Last Admin: 07/19/17 10:55 Dose: 325 mg Furosemide (Lasix) 40 mg IVP Q12 [facility] Last Admin: 07/19/17 10:56 Dose: 40 mg Guaifenesin (Robitussin) 200 mg PO Q6H PRN PRN Reason: Cough and congestion Last Admin: 07/19/17 04:57 Dose: 200 mg Azithromycin 500 mg/ Sodium (Chloride) 250 mls @ 250 mls/hr IVPB DAILY [facility] PRN Reason: Protocol Ceftriaxone Sodium 1 gm/ (Sodium Chloride) 100 mls @ 100 mls/hr IVPB DAILY [facility] PRN Reason: Protocol Lisinopril (Zestril) 5 mg PO DAILY [facility] Last Admin: 07/19/17 10:56 Dose: 5 mg Methylprednisolone (Solu-Medrol) 60 mg IV Q8H [facility] Last Admin: 07/19/17 08:24 Dose: 60 mg Metoprolol Tartrate (Lopressor) 25 mg PO BID [facility] Last Admin: 07/19/17 10:55 Dose: 25 mg Rosuvastatin Calcium (Crestor) 10 mg PO HS [facility] Last Admin: 07/18/17 21:56 Dose: 10 mg - Labs Labs: 07/18/17 06:23 07/18/17 06:23 PT 16.9 SECONDS (9.7-12.2) H 07/13/17 16:48 INR 1.5 07/13/17 16:48 APTT 28 SECONDS (21-34) D 07/18/17 06:23
--- NOTE | 2017-07-19 12:37 | CP.PCM.PN ---
Subjective - Date & Time of Evaluation Date of Evaluation: 07/19/17 Time of Evaluation: 10:35 - Subjective Subjective: the patient seen and examined Dyspnea on minimal exertion Status post cardiac catheter consistent with severe aortic stenosis and coronary artery disease Patient refusing stent and surgery Objective - Vital Signs/Intake and Output Vital Signs (last 24 hours): Temp Pulse Resp BP Pulse Ox 97.6 F 108 H 20 127/79 94 L 07/19/17 08:42 07/19/17 10:45 07/19/17 08:42 07/19/17 10:56 07/19/17 08:42 Intake and Output: 07/19/17 07/19/17 06:59 18:59 Intake Total 420 Output Total 1275 Balance -855 - Medications Medications: Current Medications Acetaminophen (Tylenol 325mg Tab) 650 mg PO Q6 PRN PRN Reason: Pain, moderate (4-7) Last Admin: 07/18/17 20:11 Dose: 650 mg Aspirin (Aspirin) 325 mg PO DAILY [facility] Last Admin: 07/19/17 10:55 Dose: 325 mg Furosemide (Lasix) 40 mg IVP Q12 [facility] Last Admin: 07/19/17 10:56 Dose: 40 mg Guaifenesin (Robitussin) 200 mg PO Q6H PRN PRN Reason: Cough and congestion Last Admin: 07/19/17 04:57 Dose: 200 mg Azithromycin 500 mg/ Sodium (Chloride) 250 mls @ 250 mls/hr IVPB Q24H [facility] PRN Reason: Protocol Ceftriaxone Sodium 1 gm/ (Sodium Chloride) 100 mls @ 100 mls/hr IVPB Q24H [facility] PRN Reason: Protocol Lisinopril (Zestril) 5 mg PO DAILY [facility] Last Admin: 07/19/17 10:56 Dose: 5 mg Methylprednisolone (Solu-Medrol) 60 mg IV Q8H [facility] Last Admin: 07/19/17 08:24 Dose: 60 mg Metoprolol Tartrate (Lopressor) 25 mg PO BID [facility] Last Admin: 07/19/17 10:55 Dose: 25 mg Rosuvastatin Calcium (Crestor) 10 mg PO HS [facility] Last Admin: 07/18/17 21:56 Dose: 10 mg - Labs Labs: 07/18/17 06:23 07/18/17 06:23 PT 16.9 SECONDS (9.7-12.2) H 07/13/17 16:48 INR 1.5 07/13/17 16:48 APTT 28 SECONDS (21-34) D 07/18/17 06:23 - Head Exam Head Exam: ATRAUMATIC, NORMOCEPHALIC - Eye Exam Eye Exam: Normal appearance - ENT Exam ENT Exam: Mucous Membranes Moist - Neck Exam Neck Exam: Normal Inspection - Respiratory Exam Respiratory Exam: Rales - Cardiovascular Exam Cardiovascular Exam: REGULAR RHYTHM - GI/Abdominal Exam GI & Abdominal Exam: Soft, Normal Bowel Sounds Assessment and Plan (1) CHF (congestive heart failure) Assessment & Plan: Symptoms are mostly secondary to CHF Cardiac workup Taper off steroids Nebulizer treatment Status: Acute (2) PNA (pneumonia) Status: Acute (3) NSTEMI (non-ST elevated myocardial infarction) Status: Acute
[2017-07-19] MEDS ORDERED: MethylPREDNISolone 40 mg Vial IV SCH (12:38)
[2017-07-19 14:10] LABS: BASO # 0.1 K/uL (0.0-0.2); BASO % 0.4 % (0.0-2.0); HEMOGLOBIN 13.1 g/dL (12.0-18.0); LYMPH # 0.9 K/uL (1.0-4.3); LYMPH % 4.3 % (20.0-40.0); MEAN CELL VOLUME 91.7 fL (80.0-94.0); MEAN CORPUSCULAR HEMOGLOBIN 31.1 pg (27.0-31.0); MEAN CORPUSCULAR HGB CONC 33.9 g/dL (33.0-37.0); MEAN PLATELET VOLUME 8.3 fL (7.2-11.7); MONO # 0.7 K/uL (0.0-0.8); MONO % 3.2 % (0.0-10.0); NEUT # 19.5 K/uL (1.8-7.0); NEUT % 92.1 % (50.0-75.0); PLATELET COUNT 371 K/uL (130-400); RED CELL DISTRIBUTION WIDTH 14.3 % (11.5-14.5); WHITE BLOOD COUNT 21.2 K/uL (4.8-10.8)
[2017-07-19 14:21] LABS: BLOOD UREA NITROGEN 40 mg/dL (9-20); GFR AFRICAN-AMERICAN > 60; GFR NON-AFRICAN AMERICAN > 60
[2017-07-19 14:45] LABS: BANDS 2 % (0-2); LYMPHOCYTE 3 % (20-40); MONOCYTE 3 % (0-10); NEUTROPHIL 92 % (50-75); PLATELET ESTIMATE NORMAL (NORMAL); TOTAL CELLS COUNTED 100
[2017-07-19] MEDS: MethylPREDNISolone 40 mg Vial IV SCH (17:09)
[2017-07-20] MEDS: MethylPREDNISolone 40 mg Vial IV SCH ×4 (00:38→23:54)
--- NOTE | 2017-07-20 02:27 | PN ---
DATE: 07/19/2017 SUBJECTIVE: The patient was seen and examined at bedside. The patient is more short of breath today. Denies any other new complaints. Denies any chest pain. All other systems reviewed and were found to be negative. PHYSICAL EXAMINATION: GENERAL: Elderly male lying in bed in no acute distress. VITAL SIGNS: Blood pressure 121/78, pulse 95, respirations 20, temperature 97.5 degrees Fahrenheit, O2 sat 96% on 2 L nasal canula. Intake is 1020 mL and output is 1275 mL. HEENT: Pupils equal, round, reacting to light and accommodation. Extraocular muscles intact. No icterus. No pallor. No oral thrush. No pharyngeal congestion. NECK: Supple. No JVD. LUNGS: Bilateral vesicular breath sounds. Bilateral basal crackles heard. Bilateral wheezing heard. CVS: S1, S2 present. Regular. ABDOMEN: Soft, nontender. Bowel sounds present. No guarding. No rigidity. No rebound tenderness noted. [employer]: Alert, awake, and oriented x3. No focal deficits noted. EXTREMITIES: 2+ pitting edema. Palpable peripheral pulses. MEDICATIONS: Tylenol as needed, aspirin 325 mg daily, Zithromax 500 mg daily, Rocephin 1 gm daily, Lasix 40 mg IV every 12 hours, Robitussin, Zestril 5 mg daily, Solu-Medrol 20 mg IV every 8 hours, metoprolol 25 mg p.o. b.i.d., Crestor 10 mg at bedtime. LABORATORY DATA: Lab done from this morning; WBC 21.2, hemoglobin 13.1, hematocrit 38.5, platelets 371. Sodium 143, potassium 4, chloride 99, bicarb 29, BUN 40, creatinine 1, glucose 241, calcium 9. LIANA is negative. C3, C4 within normal limits. C-ANCA and P-ANCA are negative. Blood cultures negative. ASSESSMENT AND PLAN: An elderly male with hypertension, admitted for pneumonia, [id number] myocardial infarction, congestive heart failure, chronic obstructive pulmonary disease exacerbation, status post cardiac catheterization consistent with left anterior descending artery and circumflex disease and found to have severe aortic stenosis. Cardiology recommending surgical intervention versus stent placement. The patient is not able to decide at this time, would like to find out about the procedure details from Cardiology. They will follow up with Cardiology for further care. Cardiology to discuss more in detail with the patient regarding the plan of care from cardiac standpoint. We will continue with current antibiotics, current beta blockers and diuretics, ANNA inhibitor has been added yesterday by Cardiology. Heparin drip is discontinued. We will monitor electrolytes closely. Elevated WBC probably secondary to IV steroids. Solu-Medrol is decreased from 60 to 20 mg IV every 8 hours. Will continue with other therapies. Follow up with Cardiology. Marisol Bishop MD
--- NOTE | 2017-07-20 07:10 | CP.PCM.PN ---
<Jose Raul Weiss - Last Filed: 07/20/17 21:16> Subjective - Date & Time of Evaluation Date of Evaluation: 07/20/17 Time of Evaluation: 07:10 - Subjective Subjective: Jose Raul Weiss PGY1 [facility] Progress Note for Dr. Lora Patient was seen and examined at bedside. Dr. Lora had a lengthy discussion with the patient regarding his condition and the planned procedures; the patient understands that he needs two stents and that his aortic valve is calcified. Patient is hesitant about the procedures and is anxious that he doesn 't want traumatic/invasive procedures. The patient is reassured that these procedures are minimally invasive. Patient and Dr. Lora agree to stenting the 2 vessels and then giving the patient time to consider his valve repair/TAVR. overall, denies shortness of breath, chest pain, n/v/d, fevers/chills, abdominal pain. Objective - Vital Signs/Intake and Output Vital Signs (last 24 hours): Temp Pulse Resp BP Pulse Ox 98.3 F 114 H 20 124/79 90 L 07/19/17 23:10 07/20/17 01:00 07/19/17 23:10 07/19/17 23:10 07/19/17 23:10 Intake and Output: 07/20/17 07/20/17 06:59 18:59 Output Total 1300 Balance -1300 - Medications Medications: Current Medications Acetaminophen (Tylenol 325mg Tab) 650 mg PO Q6 PRN PRN Reason: Pain, moderate (4-7) Last Admin: 07/18/17 20:11 Dose: 650 mg Aspirin (Aspirin) 325 mg PO DAILY [facility] Last Admin: 07/19/17 10:55 Dose: 325 mg Furosemide (Lasix) 40 mg IVP Q12 [facility] Last Admin: 07/19/17 21:14 Dose: 40 mg Guaifenesin (Robitussin) 200 mg PO Q6H PRN PRN Reason: Cough and congestion Last Admin: 07/19/17 04:57 Dose: 200 mg Azithromycin 500 mg/ Sodium (Chloride) 250 mls @ 250 mls/hr IVPB Q24H [facility] PRN Reason: Protocol Ceftriaxone Sodium 1 gm/ (Sodium Chloride) 100 mls @ 100 mls/hr IVPB Q24H [facility] PRN Reason: Protocol Lisinopril (Zestril) 5 mg PO DAILY [facility] Last Admin: 07/19/17 10:56 Dose: 5 mg Methylprednisolone (Solu-Medrol) 20 mg IV Q8H [facility] Last Admin: 07/20/17 00:38 Dose: 20 mg Metoprolol Tartrate (Lopressor) 25 mg PO BID [facility] Last Admin: 07/19/17 17:10 Dose: 25 mg Rosuvastatin Calcium (Crestor) 10 mg PO HS [facility] Last Admin: 07/19/17 21:14 Dose: 10 mg - Labs Labs: 07/19/17 13:55 07/19/17 13:55 PT 16.9 SECONDS (9.7-12.2) H 07/13/17 16:48 INR 1.5 07/13/17 16:48 APTT 28 SECONDS (21-34) D 07/18/17 06:23 - Constitutional Appears: Well, Non-toxic, No Acute Distress - Head Exam Head Exam: NORMAL INSPECTION - Eye Exam Eye Exam: Normal appearance Pupil Exam: NORMAL ACCOMODATION - ENT Exam ENT Exam: Normal Exam - Neck Exam Neck Exam: Normal Inspection - Respiratory Exam Respiratory Exam: Rales (mild), NORMAL BREATHING PATTERN. absent: Respiratory Distress (able to speak in short sentences) - Cardiovascular Exam Cardiovascular Exam: RRR, +S1, +S2, Murmur - GI/Abdominal Exam GI & Abdominal Exam: Normal Bowel Sounds - Extremities Exam Extremities Exam: Full ROM. absent: Pedal Edema - Back Exam Back Exam: Full ROM - Neurological Exam Neurological Exam: Alert, Awake - Psychiatric Exam Psychiatric exam: Normal Mood - Skin Skin Exam: Normal Color Assessment and Plan - Assessment and Plan (Free Text) Assessment: 72yo M with PMH of HTN and pneumonia presenting with CHF exacerbation, NSTEMI and pneumonia. Plan is for two vessel repair and possible TAVR. Plan: 1. CHF exacerbation, likely 2/2 severe - plan for PCI 2 vessel disease and possible TAVR to follow - PFT's were done yesterday; f/u results - Echo showed EF 35% w/ lateral WMA, severe LV diastolic dysfunction and severe - cath showed severe aortic stenosis, 2 vessel CAD and elevated EDP; recommending AVR vs TAVR w/ possible revascularization of LAD and circumflex - carotid Duplex doesn't suggest significant hemodynamic stenosis - cont Lasix 40mg IVP q12 - cont BB and ACEi 2. NSTEMI - d/c heparin drip - cont ASA and BB - cont statin 3. Pneumonia - cont Rocephin and Zithromax - soulmedrol Patient was evaluated and discussed with Dr. Lora <Joshua Lora - Last Filed: 07/22/17 15:40> Objective - Vital Signs/Intake and Output Vital Signs (last 24 hours): Temp Pulse Resp BP Pulse Ox 97.7 F 81 20 105/68 98 07/22/17 15:00 07/22/17 15:00 07/22/17 15:00 07/22/17 15:00 07/22/17 15:00 Intake and Output: 07/22/17 07/22/17 06:59 18:59 Intake Total 240 Output Total 1250 Balance -1010 - Medications Medications: Current Medications Acetaminophen (Tylenol 325mg Tab) 650 mg PO Q6 PRN PRN Reason: Pain, moderate (4-7) Last Admin: 07/18/17 20:11 Dose: 650 mg Amoxicillin/Clavulanate Potassium (Augmentin 875 Mg-125 Mg Tab) 1 tab PO Q12H [facility] PRN Reason: Protocol Aspirin (Aspirin) 325 mg PO DAILY [facility] Last Admin: 07/22/17 10:04 Dose: 325 mg Furosemide (Lasix) 40 mg IVP Q12 [facility] Last Admin: 07/22/17 10:05 Dose: 40 mg Guaifenesin (Robitussin) 200 mg PO Q6H PRN PRN Reason: Cough and congestion Last Admin: 07/20/17 09:21 Dose: 200 mg Azithromycin 500 mg/ Sodium (Chloride) 250 mls @ 250 mls/hr IVPB Q24H [facility] PRN Reason: Protocol Last Admin: 07/22/17 10:05 Dose: 250 mls/hr Ceftriaxone Sodium 1 gm/ (Sodium Chloride) 100 mls @ 100 mls/hr IVPB Q24H [facility] PRN Reason: Protocol Last Admin: 07/22/17 12:08 Dose: 100 mls/hr Lisinopril (Zestril) 5 mg PO DAILY [facility] Last Admin: 07/22/17 10:04 Dose: 5 mg Methylprednisolone (Solu-Medrol) 20 mg IV Q8H [facility] Last Admin: 07/22/17 08:19 Dose: 20 mg Metoprolol Tartrate (Lopressor) 25 mg PO BID [facility] Last Admin: 07/22/17 10:04 Dose: 25 mg Prednisone (Prednisone Tab) 20 mg PO DAILY [facility] Rosuvastatin Calcium (Crestor) 10 mg PO HS [facility] Last Admin: 07/21/17 21:27 Dose: 10 mg - Labs Labs: 07/21/17 06:28 07/21/17 06:28 PT 16.9 SECONDS (9.7-12.2) H 07/13/17 16:48 INR 1.5 07/13/17 16:48 APTT 28 SECONDS (21-34) D 07/18/17 06:23 Assessment and Plan (1) CHF (congestive heart failure) Status: Acute (2) NSTEMI (non-ST elevated myocardial infarction) Status: Acute (3) PNA (pneumonia) Status: Acute (4) Troponin level elevated Status: Acute (5) Aortic stenosis Status: Acute Attending/Attestation - Attestation I have personally seen and examined this patient.: Yes I have fully participated in the care of the patient.: Yes I have reviewed all pertinent clinical information, including history, physical exam and plan: Yes
[2017-07-20] MEDS: guaiFENesin 200 mg/10 ml Syrup UD PO PRN (09:21)
[2017-07-20] MEDS: Azithromycin 500 MG in Sodium Chloride 0.9% 250 ML IVPB SCH (09:24)
--- NOTE | 2017-07-20 10:38 | CP.PCM.PN ---
Subjective - Date & Time of Evaluation Date of Evaluation: 07/20/17 Time of Evaluation: 10:40 - Subjective Subjective: Progress note dictated #[id number] Objective - Vital Signs/Intake and Output Vital Signs (last 24 hours): Temp Pulse Resp BP Pulse Ox 97.3 F L 94 H 20 124/84 96 07/20/17 07:05 07/20/17 08:00 07/20/17 07:05 07/20/17 09:22 07/20/17 07:05 Intake and Output: 07/20/17 07/20/17 06:59 18:59 Output Total 1300 Balance -1300 - Medications Medications: Current Medications Acetaminophen (Tylenol 325mg Tab) 650 mg PO Q6 PRN PRN Reason: Pain, moderate (4-7) Last Admin: 07/18/17 20:11 Dose: 650 mg Aspirin (Aspirin) 325 mg PO DAILY [facility] Last Admin: 07/20/17 09:27 Dose: 325 mg Furosemide (Lasix) 40 mg IVP Q12 [facility] Last Admin: 07/20/17 09:22 Dose: 40 mg Guaifenesin (Robitussin) 200 mg PO Q6H PRN PRN Reason: Cough and congestion Last Admin: 07/20/17 09:21 Dose: 200 mg Azithromycin 500 mg/ Sodium (Chloride) 250 mls @ 250 mls/hr IVPB Q24H [facility] PRN Reason: Protocol Last Admin: 07/20/17 09:24 Dose: 250 mls/hr Ceftriaxone Sodium 1 gm/ (Sodium Chloride) 100 mls @ 100 mls/hr IVPB Q24H [facility] PRN Reason: Protocol Lisinopril (Zestril) 5 mg PO DAILY [facility] Last Admin: 07/20/17 09:22 Dose: 5 mg Methylprednisolone (Solu-Medrol) 20 mg IV Q8H [facility] Last Admin: 07/20/17 09:22 Dose: 20 mg Metoprolol Tartrate (Lopressor) 25 mg PO BID [facility] Last Admin: 07/20/17 09:21 Dose: 25 mg Rosuvastatin Calcium (Crestor) 10 mg PO HS [facility] Last Admin: 07/19/17 21:14 Dose: 10 mg - Labs Labs: 07/19/17 13:55 07/19/17 13:55 PT 16.9 SECONDS (9.7-12.2) H 07/13/17 16:48 INR 1.5 07/13/17 16:48 APTT 28 SECONDS (21-34) D 07/18/17 06:23
[2017-07-20 14:10] LABS: BASO # 0.1 K/uL (0.0-0.2); BASO % 0.5 % (0.0-2.0); HEMOGLOBIN 13.1 g/dL (12.0-18.0); LYMPH % 4.1 % (20.0-40.0); MEAN CELL VOLUME 91.2 fL (80.0-94.0); MEAN CORPUSCULAR HEMOGLOBIN 30.9 pg (27.0-31.0); MEAN CORPUSCULAR HGB CONC 33.8 g/dL (33.0-37.0); MEAN PLATELET VOLUME 8.3 fL (7.2-11.7); MONO % 3.9 % (0.0-10.0); NEUT # 23.4 K/uL (1.8-7.0); NEUT % 91.5 % (50.0-75.0); NRBC % 0.1 % (0.0-2.0); PLATELET COUNT 324 K/uL (130-400); RBC 4.25 Mil/uL (4.40-5.90); RED CELL DISTRIBUTION WIDTH 14.4 % (11.5-14.5); WHITE BLOOD COUNT 25.6 K/uL (4.8-10.8)
[2017-07-20 14:23] LABS: ALB/GLOB RATIO 0.8 (1.0-2.1); ALBUMIN 3.1 g/dL (3.5-5.0); ALT/SGPT 69 U/L (21-72); AST/SGOT 49 U/L (17-59); BLOOD UREA NITROGEN 44 mg/dL (9-20); CALCIUM 9.3 mg/dl (8.6-10.4); GFR AFRICAN-AMERICAN > 60; GFR NON-AFRICAN AMERICAN > 60
[2017-07-20 14:46] LABS: BANDS 1 % (0-2); LYMPHOCYTE 3 % (20-40); MONOCYTE 4 % (0-10); MYELOCYTE 1 % (0-0); NEUTROPHIL 91 % (50-75); PLATELET ESTIMATE NORMAL (NORMAL); TOTAL CELLS COUNTED 100
--- NOTE | 2017-07-20 15:52 | CP.PCM.PN ---
Subjective - Date & Time of Evaluation Date of Evaluation: 07/20/17 Time of Evaluation: 13:00 - Subjective Subjective: patient seen and examined still complaining of shortness of breath Patient agreed for stent placement Afebrile Denies any chest pain Objective - Vital Signs/Intake and Output Vital Signs (last 24 hours): Temp Pulse Resp BP Pulse Ox 97.3 F L 114 H 20 124/84 96 07/20/17 07:05 07/20/17 13:00 07/20/17 07:05 07/20/17 09:22 07/20/17 07:05 Intake and Output: 07/20/17 07/20/17 06:59 18:59 Intake Total 750 Output Total 1300 1300 Balance -1300 -550 - Medications Medications: Current Medications Acetaminophen (Tylenol 325mg Tab) 650 mg PO Q6 PRN PRN Reason: Pain, moderate (4-7) Last Admin: 07/18/17 20:11 Dose: 650 mg Aspirin (Aspirin) 325 mg PO DAILY [facility] Last Admin: 07/20/17 09:27 Dose: 325 mg Furosemide (Lasix) 40 mg IVP Q12 [facility] Last Admin: 07/20/17 09:22 Dose: 40 mg Guaifenesin (Robitussin) 200 mg PO Q6H PRN PRN Reason: Cough and congestion Last Admin: 07/20/17 09:21 Dose: 200 mg Azithromycin 500 mg/ Sodium (Chloride) 250 mls @ 250 mls/hr IVPB Q24H [facility] PRN Reason: Protocol Last Admin: 07/20/17 09:24 Dose: 250 mls/hr Ceftriaxone Sodium 1 gm/ (Sodium Chloride) 100 mls @ 100 mls/hr IVPB Q24H [facility] PRN Reason: Protocol Last Admin: 07/20/17 13:03 Dose: 100 mls/hr Lisinopril (Zestril) 5 mg PO DAILY [facility] Last Admin: 07/20/17 09:22 Dose: 5 mg Methylprednisolone (Solu-Medrol) 20 mg IV Q8H [facility] Last Admin: 07/20/17 09:22 Dose: 20 mg Metoprolol Tartrate (Lopressor) 25 mg PO BID [facility] Last Admin: 07/20/17 09:21 Dose: 25 mg Rosuvastatin Calcium (Crestor) 10 mg PO HS [facility] Last Admin: 05/17/18 21:14 Dose: 10 mg - Labs Labs: 07/20/17 13:59 07/20/17 13:59 PT 16.9 SECONDS (9.7-12.2) H 07/13/17 16:48 INR 1.5 07/13/17 16:48 APTT 28 SECONDS (21-34) D 07/18/17 06:23 - Head Exam Head Exam: ATRAUMATIC, NORMOCEPHALIC - Eye Exam Eye Exam: Normal appearance - ENT Exam ENT Exam: Mucous Membranes Moist - Neck Exam Neck Exam: Normal Inspection - Respiratory Exam Respiratory Exam: Rhonchi - Cardiovascular Exam Cardiovascular Exam: REGULAR RHYTHM - GI/Abdominal Exam GI & Abdominal Exam: Soft, Normal Bowel Sounds - Extremities Exam Extremities Exam: Pedal Edema Assessment and Plan (1) CHF (congestive heart failure) Assessment & Plan: Patient agreed for stent placement Continue diuretics Taper prednisone Repeat chest x-ray Status: Acute (2) PNA (pneumonia) Status: Acute (3) NSTEMI (non-ST elevated myocardial infarction) Status: Acute
--- NOTE | 2017-07-20 16:54 | RAD ---
PROCEDURE: CHEST RADIOGRAPH, 1 VIEW HISTORY: f/u infiltrate COMPARISON: 07/14/2017 FINDINGS: LUNGS: Extensive right-sided pulmonary opacity, right greater than left. No significant change from prior examination. PLEURA: Probable small right pleural effusion. No evidence of left pleural effusion. No pneumothorax. CARDIOVASCULAR: Normal. OSSEOUS STRUCTURES: No significant abnormalities. VISUALIZED UPPER ABDOMEN: Normal. OTHER FINDINGS: None. IMPRESSION: Multifocal bilateral pulmonary opacity, right greater than left. Possible bilateral pneumonia. Probable small right pleural effusion.
[2017-07-20 17:53] LABS: ANCA SCREEN NEGATIVE (NEGATIVE)
--- NOTE | 2017-07-20 20:02 | PN ---
DATE: 07/20/2017 SUBJECTIVE: The patient was seen and examined at bedside. The patient denies any new complaints. He denies any chest pain, shortness of breath, or dizziness today. Denies any headache, dizziness. All other systems reviewed and was found to be negative. PHYSICAL EXAMINATION: GENERAL: An elderly male, sitting in bed, in no acute distress. VITAL SIGNS: Blood pressure 124/84, pulse 94, respirations 20, temperature 98.6 degrees Fahrenheit, O2 saturations 94% on 2 liters nasal cannula. Intake is 1020, and output is 1275 mL. HEENT: Pupils are equal, round, and reacting to light and accommodation. Extraocular muscles intact. No icterus. No pallor. No oral thrush. No oropharyngeal congestion. NECK: Supple. No JVD. LUNGS: Bilateral vesicular breath sounds. Bilateral basilar crackles and wheezing heard. CVS: S1 and S2 present, regular. ABDOMEN: Soft, nontender. Bowel sounds present. No guarding. No rigidity. No rebound tenderness noted. 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 No focal deficits noted. EXTREMITIES: 1+ edema. Palpable peripheral pulses. MEDICATIONS: Include aspirin 325 mg daily, Zithromax 500 mg daily, Rocephin 1 gm daily, Lasix 40 mg IV every 12 hours, Zestril 5 mg daily, Solu-Medrol 20 mg IV every 8 hours, metoprolol 25 mg p.o. b.i.d., Zestril 10 mg p.o. at bedtime. LABORATORY DATA: From today, WBC 25.6, hemoglobin 13.1, hematocrit 38.7, platelets 324. Sodium 139, potassium 4.2, chloride 99, bicarb 31, BUN 44, creatinine 1.1, glucose 139, calcium 9.3. AST 49, ALT 69, alkaline phosphatase 103. ASSESSMENT AND PLAN: Elderly male with hypertension, double vessel coronary artery disease, congestive heart failure, chronic obstructive pulmonary disease, pneumonia, severe aortic stenosis, non-ST elevation myocardial infarction. The patient is scheduled for possible stent placement at [facility] ____ as per the patient, to be done by Dr. Lora. After prolonged discussion with the patient, the patient agreed for stent placement. We will continue with current medication. Monitor his WBC count, elevated WBC count probably secondary to intravenous Solu-Medrol. The patient does not look toxic or septic. Procalcitonin was negative when monitored white blood cell count closely. Continue with current antibiotics. His steroid dose decreased. Follow up with Cardiology. Marisol Bishop MD
[2017-07-21 06:36] LABS: BASO % 0.2 % (0.0-2.0); HEMOGLOBIN 13.6 g/dL (12.0-18.0); LYMPH # 0.9 K/uL (1.0-4.3); LYMPH % 5.3 % (20.0-40.0); MEAN CELL VOLUME 90.9 fL (80.0-94.0); MEAN CORPUSCULAR HEMOGLOBIN 30.8 pg (27.0-31.0); MEAN CORPUSCULAR HGB CONC 33.9 g/dL (33.0-37.0); MEAN PLATELET VOLUME 8.2 fL (7.2-11.7); MONO # 0.5 K/uL (0.0-0.8); NEUT # 15.6 K/uL (1.8-7.0); NEUT % 91.5 % (50.0-75.0); NRBC % 0.1 % (0.0-2.0); PLATELET COUNT 307 K/uL (130-400); RED CELL DISTRIBUTION WIDTH 14.2 % (11.5-14.5); WHITE BLOOD COUNT 17.1 K/uL (4.8-10.8)
[2017-07-21 06:55] LABS: BLOOD UREA NITROGEN 44 mg/dL (9-20); CALCIUM 8.9 mg/dl (8.6-10.4); GFR AFRICAN-AMERICAN > 60; GFR NON-AFRICAN AMERICAN > 60
[2017-07-21] MEDS: MethylPREDNISolone 40 mg Vial IV SCH ×2 (08:33→17:19)
--- NOTE | 2017-07-21 08:54 | CP.PCM.PN ---
Subjective - Date & Time of Evaluation Date of Evaluation: 07/21/17 Time of Evaluation: 08:40 - Subjective Subjective: Progress note dictated #[id number] Objective - Vital Signs/Intake and Output Vital Signs (last 24 hours): Temp Pulse Resp BP Pulse Ox 97.9 F 94 H 20 118/76 97 07/21/17 07:00 07/21/17 07:00 07/21/17 07:00 07/21/17 07:00 07/21/17 07:00 Intake and Output: 07/21/17 07/21/17 06:59 18:59 Intake Total 200 Output Total 1600 Balance -1400 - Medications Medications: Current Medications Acetaminophen (Tylenol 325mg Tab) 650 mg PO Q6 PRN PRN Reason: Pain, moderate (4-7) Last Admin: 07/18/17 20:11 Dose: 650 mg Aspirin (Aspirin) 325 mg PO DAILY [facility] Last Admin: 07/20/17 09:27 Dose: 325 mg Furosemide (Lasix) 40 mg IVP Q12 [facility] Last Admin: 07/20/17 21:41 Dose: 40 mg Guaifenesin (Robitussin) 200 mg PO Q6H PRN PRN Reason: Cough and congestion Last Admin: 07/20/17 09:21 Dose: 200 mg Azithromycin 500 mg/ Sodium (Chloride) 250 mls @ 250 mls/hr IVPB Q24H [facility] PRN Reason: Protocol Last Admin: 07/20/17 09:24 Dose: 250 mls/hr Ceftriaxone Sodium 1 gm/ (Sodium Chloride) 100 mls @ 100 mls/hr IVPB Q24H [facility] PRN Reason: Protocol Last Admin: 07/20/17 13:03 Dose: 100 mls/hr Lisinopril (Zestril) 5 mg PO DAILY [facility] Last Admin: 07/20/17 09:22 Dose: 5 mg Methylprednisolone (Solu-Medrol) 20 mg IV Q8H [facility] Last Admin: 07/21/17 08:33 Dose: 20 mg Metoprolol Tartrate (Lopressor) 25 mg PO BID [facility] Last Admin: 07/20/17 17:29 Dose: Not Given Rosuvastatin Calcium (Crestor) 10 mg PO HS [facility] Last Admin: 07/20/17 21:38 Dose: 10 mg - Labs Labs: 07/21/17 06:28 07/21/17 06:28 PT 16.9 SECONDS (9.7-12.2) H 07/13/17 16:48 INR 1.5 07/13/17 16:48 APTT 28 SECONDS (21-34) D 07/18/17 06:23
[2017-07-21 08:58] LABS: BANDS 1 % (0-2); LYMPHOCYTE 5 % (20-40); MONOCYTE 2 % (0-10); NEUTROPHIL 92 % (50-75); PLATELET ESTIMATE NORMAL (NORMAL); TOTAL CELLS COUNTED 100
[2017-07-21] MEDS: Azithromycin 500 MG in Sodium Chloride 0.9% 250 ML IVPB SCH (09:31)
--- NOTE | 2017-07-21 13:19 | CP.PCM.PN ---
Subjective - Date & Time of Evaluation Date of Evaluation: 07/21/17 Time of Evaluation: 09:20 - Subjective Subjective: The patient seen and examined Still complaining of cough Afebrile Less shortness of breath No chest pain For stent placement on Sunday Tapering steroids Continue nebatment P.o. antibiotic Objective - Vital Signs/Intake and Output Vital Signs (last 24 hours): Temp Pulse Resp BP Pulse Ox 97.9 F 97 H 20 118/76 97 07/21/17 07:00 07/21/17 08:56 07/21/17 07:00 07/21/17 09:33 07/21/17 07:00 Intake and Output: 07/21/17 07/21/17 06:59 18:59 Intake Total 200 Output Total 1600 Balance -1400 - Medications Medications: Current Medications Acetaminophen (Tylenol 325mg Tab) 650 mg PO Q6 PRN PRN Reason: Pain, moderate (4-7) Last Admin: 07/18/17 20:11 Dose: 650 mg Aspirin (Aspirin) 325 mg PO DAILY [facility] Last Admin: 07/21/17 09:32 Dose: 325 mg Furosemide (Lasix) 40 mg IVP Q12 [facility] Last Admin: 07/21/17 09:33 Dose: 40 mg Guaifenesin (Robitussin) 200 mg PO Q6H PRN PRN Reason: Cough and congestion Last Admin: 07/20/17 09:21 Dose: 200 mg Azithromycin 500 mg/ Sodium (Chloride) 250 mls @ 250 mls/hr IVPB Q24H [facility] PRN Reason: Protocol Last Admin: 07/21/17 09:31 Dose: 250 mls/hr Ceftriaxone Sodium 1 gm/ (Sodium Chloride) 100 mls @ 100 mls/hr IVPB Q24H [facility] PRN Reason: Protocol Last Admin: 07/20/17 13:03 Dose: 100 mls/hr Lisinopril (Zestril) 5 mg PO DAILY [facility] Last Admin: 07/21/17 09:33 Dose: 5 mg Methylprednisolone (Solu-Medrol) 20 mg IV Q8H [facility] Last Admin: 07/21/17 08:33 Dose: 20 mg Metoprolol Tartrate (Lopressor) 25 mg PO BID [facility] Last Admin: 07/21/17 09:33 Dose: 25 mg Rosuvastatin Calcium (Crestor) 10 mg PO HS [facility] Last Admin: 07/20/17 21:38 Dose: 10 mg - Labs Labs: 07/21/17 06:28 07/21/17 06:28 PT 16.9 SECONDS (9.7-12.2) H 07/13/17 16:48 INR 1.5 07/13/17 16:48 APTT 28 SECONDS (21-34) D 07/18/17 06:23 Assessment and Plan (1) CHF (congestive heart failure) Status: Acute (2) PNA (pneumonia) Status: Acute (3) NSTEMI (non-ST elevated myocardial infarction) Status: Acute
--- NOTE | 2017-07-21 23:07 | PN ---
DATE: 07/21/2017 SUBJECTIVE: The patient was seen and examined at bedside this morning. The patient offers no new complaints, less shortness of breath today, waiting for cardiac cath Sunday. All other systems reviewed and was found to be negative. PHYSICAL EXAMINATION: GENERAL: Elderly male, sitting in bed, in no acute distress. VITAL SIGNS: Blood pressure 118/76, pulse 100, respirations 20, temperature 98.2 degrees Fahrenheit, O2 saturations 96% on 2 liters nasal cannula. HEENT: Pupils are equal, round, and reacting to light and accommodation. Extraocular muscles intact. No icterus. No pallor. No oral thrush. No oropharyngeal congestion. NECK: Supple. No JVD. LUNGS: Bilateral vesicular breath sounds. No wheezing, no rhonchi. CVS: S1 and S2 present, regular. ABDOMEN: Soft and nontender. Bowel sounds present. No guarding. No rigidity. No rebound tenderness noted. 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 No focal deficits noted. EXTREMITIES: 1+ edema. Palpable peripheral pulses. MEDICATIONS: Include aspirin 325 mg daily, Zithromax 500 mg daily, Rocephin 1 gm daily, Lasix 40 mg IV push every 12 hours, Robitussin 200 mg p.o. every 6 hours p.r.n., Zestril 5 mg daily, Solu-Medrol 20 mg IV every 8 hours, metoprolol 25 mg p.o. b.i.d., and Crestor 10 mg p.o. at bedtime. LABORATORY DATA: Labs from this morning, WBC 17.1, hemoglobin 13.6, hematocrit 40, platelets 307. Sodium 140, potassium 4.7, chloride 98, bicarb 34, BUN 44, creatinine 1, glucose 119, calcium 8.9. Chest x-ray from 07/20 shows multifocal bilateral pulmonary opacity, right greater than left, possible bilateral pneumonia, probable small right plural effusion. 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 We will continue with current antibiotics. Steroids decreased, his white count is improving. Renal function remains stable. We will continue with aspirin, beta blockers, Lasix, ANNA inhibitors as ordered by Cardiology. We will follow up with Cardiology regarding the catheterization. Marisol Bishop MD
[2017-07-22] MEDS: MethylPREDNISolone 40 mg Vial IV SCH ×3 (00:09→16:34)
[2017-07-22] MEDS: Azithromycin 500 MG in Sodium Chloride 0.9% 250 ML IVPB SCH (10:05)
--- NOTE | 2017-07-22 11:45 | CP.PCM.PN ---
Subjective - Date & Time of Evaluation Date of Evaluation: 07/22/17 Time of Evaluation: 11:45 - Subjective Subjective: Progress note dictated #[id number] Objective - Vital Signs/Intake and Output Vital Signs (last 24 hours): Temp Pulse Resp BP Pulse Ox 97.7 F 87 20 122/78 95 07/22/17 08:40 07/22/17 08:40 07/22/17 08:40 07/22/17 10:05 07/22/17 08:40 Intake and Output: 07/22/17 07/22/17 06:59 18:59 Intake Total 240 Output Total 1250 Balance -1010 - Medications Medications: Current Medications Acetaminophen (Tylenol 325mg Tab) 650 mg PO Q6 PRN PRN Reason: Pain, moderate (4-7) Last Admin: 07/18/17 20:11 Dose: 650 mg Aspirin (Aspirin) 325 mg PO DAILY [facility] Last Admin: 07/22/17 10:04 Dose: 325 mg Furosemide (Lasix) 40 mg IVP Q12 [facility] Last Admin: 07/22/17 10:05 Dose: 40 mg Guaifenesin (Robitussin) 200 mg PO Q6H PRN PRN Reason: Cough and congestion Last Admin: 07/20/17 09:21 Dose: 200 mg Azithromycin 500 mg/ Sodium (Chloride) 250 mls @ 250 mls/hr IVPB Q24H [facility] PRN Reason: Protocol Last Admin: 07/22/17 10:05 Dose: 250 mls/hr Ceftriaxone Sodium 1 gm/ (Sodium Chloride) 100 mls @ 100 mls/hr IVPB Q24H [facility] PRN Reason: Protocol Last Admin: 07/21/17 13:43 Dose: 100 mls/hr Lisinopril (Zestril) 5 mg PO DAILY [facility] Last Admin: 07/22/17 10:04 Dose: 5 mg Methylprednisolone (Solu-Medrol) 20 mg IV Q8H [facility] Last Admin: 07/22/17 08:19 Dose: 20 mg Metoprolol Tartrate (Lopressor) 25 mg PO BID [facility] Last Admin: 07/22/17 10:04 Dose: 25 mg Rosuvastatin Calcium (Crestor) 10 mg PO HS [facility] Last Admin: 07/21/17 21:27 Dose: 10 mg - Labs Labs: 07/21/17 06:28 07/21/17 06:28 PT 16.9 SECONDS (9.7-12.2) H 07/13/17 16:48 INR 1.5 07/13/17 16:48 APTT 28 SECONDS (21-34) D 07/18/17 06:23
--- NOTE | 2017-07-22 15:44 | CP.PCM.PN ---
Subjective - Date & Time of Evaluation Date of Evaluation: 07/21/17 Time of Evaluation: 15:00 - Subjective Subjective: sob improving cough +ve Objective - Vital Signs/Intake and Output Vital Signs (last 24 hours): Temp Pulse Resp BP Pulse Ox 97.7 F 81 20 105/68 98 07/22/17 15:00 07/22/17 15:00 07/22/17 15:00 07/22/17 15:00 07/22/17 15:00 Intake and Output: 07/22/17 07/22/17 06:59 18:59 Intake Total 240 Output Total 1250 Balance -1010 - Medications Medications: Current Medications Acetaminophen (Tylenol 325mg Tab) 650 mg PO Q6 PRN PRN Reason: Pain, moderate (4-7) Last Admin: 07/18/17 20:11 Dose: 650 mg Amoxicillin/Clavulanate Potassium (Augmentin 875 Mg-125 Mg Tab) 1 tab PO Q12H [facility] PRN Reason: Protocol Aspirin (Aspirin) 325 mg PO DAILY [facility] Last Admin: 07/22/17 10:04 Dose: 325 mg Furosemide (Lasix) 40 mg IVP Q12 [facility] Last Admin: 07/22/17 10:05 Dose: 40 mg Guaifenesin (Robitussin) 200 mg PO Q6H [facility] PRN Reason: Cough and congestion Last Admin: 07/20/17 09:21 Dose: 200 mg Azithromycin 500 mg/ Sodium (Chloride) 250 mls @ 250 mls/hr IVPB Q24H [facility] PRN Reason: Protocol Last Admin: 07/22/17 10:05 Dose: 250 mls/hr Ceftriaxone Sodium 1 gm/ (Sodium Chloride) 100 mls @ 100 mls/hr IVPB Q24H [facility] PRN Reason: Protocol Last Admin: 07/22/17 12:08 Dose: 100 mls/hr Lisinopril (Zestril) 5 mg PO DAILY [facility] Last Admin: 07/22/17 10:04 Dose: 5 mg Methylprednisolone (Solu-Medrol) 20 mg IV Q8H [facility] Last Admin: 07/22/17 08:19 Dose: 20 mg Metoprolol Tartrate (Lopressor) 25 mg PO BID [facility] Last Admin: 07/22/17 10:04 Dose: 25 mg Prednisone (Prednisone Tab) 20 mg PO DAILY [facility] Rosuvastatin Calcium (Crestor) 10 mg PO HS [facility] Last Admin: 07/21/17 21:27 Dose: 10 mg - Labs Labs: 07/21/17 06:28 07/21/17 06:28 PT 16.9 SECONDS (9.7-12.2) H 07/13/17 16:48 INR 1.5 07/13/17 16:48 APTT 28 SECONDS (21-34) D 07/18/17 06:23 - Constitutional Appears: Well - Head Exam Head Exam: ATRAUMATIC, NORMAL INSPECTION, NORMOCEPHALIC - Eye Exam Eye Exam: EOMI, Normal appearance, PERRL Pupil Exam: NORMAL ACCOMODATION, PERRL - ENT Exam ENT Exam: Mucous Membranes Moist, Normal Exam - Neck Exam Neck Exam: Full ROM, Normal Inspection. absent: Lymphadenopathy - Respiratory Exam Respiratory Exam: Clear to Ausculation Bilateral, Rales, NORMAL BREATHING PATTERN - Cardiovascular Exam Cardiovascular Exam: REGULAR RHYTHM, +S1, +S2, Murmur - GI/Abdominal Exam GI & Abdominal Exam: Soft, Normal Bowel Sounds. absent: Tenderness - Extremities Exam Extremities Exam: Full ROM, Normal Capillary Refill, Normal Inspection. absent : Joint Swelling, Pedal Edema - Back Exam Back Exam: NORMAL INSPECTION - Neurological Exam Neurological Exam: Alert, Awake, CN II-XII Intact, Normal Gait, Oriented x3 - Psychiatric Exam Psychiatric exam: Normal Affect, Normal Mood - Skin Skin Exam: Dry, Intact, Normal Color, Warm Assessment and Plan (1) Aortic stenosis Assessment & Plan: plan for possible TAVR evaluation Status: Acute (2) CHF (congestive heart failure) Status: Acute (3) NSTEMI (non-ST elevated myocardial infarction) Assessment & Plan: staged PCi of LCx/LAD tomorrow at [facility] due to severely caclified vessel and severe cont asa, plavix Status: Acute (4) PNA (pneumonia) Status: Acute (5) Troponin level elevated Status: Acute
--- NOTE | 2017-07-22 15:44 | CARD ---
APPROVED REPORT EKG Measurement Heart [id number] <Conclusion> Sinus tachycardia Possible Left atrial enlargement Left ventricular hypertrophy with repolarization abnormality Abnormal ECG
--- NOTE | 2017-07-22 15:45 | CP.PCM.PN ---
Subjective - Date & Time of Evaluation Date of Evaluation: 07/22/17 Time of Evaluation: 15:44 - Subjective Subjective: sob improving Objective - Vital Signs/Intake and Output Vital Signs (last 24 hours): Temp Pulse Resp BP Pulse Ox 97.7 F 81 20 105/68 98 07/22/17 15:00 07/22/17 15:00 07/22/17 15:00 07/22/17 15:00 07/22/17 15:00 Intake and Output: 07/22/17 07/22/17 06:59 18:59 Intake Total 240 Output Total 1250 Balance -1010 - Medications Medications: Current Medications Acetaminophen (Tylenol 325mg Tab) 650 mg PO Q6 PRN PRN Reason: Pain, moderate (4-7) Last Admin: 07/18/17 20:11 Dose: 650 mg Amoxicillin/Clavulanate Potassium (Augmentin 875 Mg-125 Mg Tab) 1 tab PO Q12H [facility] PRN Reason: Protocol Aspirin (Aspirin) 325 mg PO DAILY [facility] Last Admin: 07/22/17 10:04 Dose: 325 mg Furosemide (Lasix) 40 mg IVP Q12 [facility] Last Admin: 07/22/17 10:05 Dose: 40 mg Guaifenesin (Robitussin) 200 mg PO Q6H [facility] PRN Reason: Cough and congestion Last Admin: 07/20/17 09:21 Dose: 200 mg Azithromycin 500 mg/ Sodium (Chloride) 250 mls @ 250 mls/hr IVPB Q24H [facility] PRN Reason: Protocol Last Admin: 07/22/17 10:05 Dose: 250 mls/hr Ceftriaxone Sodium 1 gm/ (Sodium Chloride) 100 mls @ 100 mls/hr IVPB Q24H [facility] PRN Reason: Protocol Last Admin: 07/22/17 12:08 Dose: 100 mls/hr Lisinopril (Zestril) 5 mg PO DAILY [facility] Last Admin: 07/22/17 10:04 Dose: 5 mg Methylprednisolone (Solu-Medrol) 20 mg IV Q8H [facility] Last Admin: 07/22/17 08:19 Dose: 20 mg Metoprolol Tartrate (Lopressor) 25 mg PO BID [facility] Last Admin: 07/22/17 10:04 Dose: 25 mg Prednisone (Prednisone Tab) 20 mg PO DAILY [facility] Rosuvastatin Calcium (Crestor) 10 mg PO HS [facility] Last Admin: 07/21/17 21:27 Dose: 10 mg - Labs Labs: 07/21/17 06:28 07/21/17 06:28 PT 16.9 SECONDS (9.7-12.2) H 07/13/17 16:48 INR 1.5 07/13/17 16:48 APTT 28 SECONDS (21-34) D 07/18/17 06:23 - Constitutional Appears: Well - Head Exam Head Exam: ATRAUMATIC, NORMAL INSPECTION, NORMOCEPHALIC - Eye Exam Eye Exam: EOMI, Normal appearance, PERRL Pupil Exam: NORMAL ACCOMODATION, PERRL - ENT Exam ENT Exam: Mucous Membranes Moist, Normal Exam - Neck Exam Neck Exam: Full ROM, Normal Inspection. absent: Lymphadenopathy - Respiratory Exam Respiratory Exam: Clear to Ausculation Bilateral, NORMAL BREATHING PATTERN - Cardiovascular Exam Cardiovascular Exam: REGULAR RHYTHM, +S1, +S2, Murmur - GI/Abdominal Exam GI & Abdominal Exam: Soft, Normal Bowel Sounds. absent: Tenderness - Extremities Exam Extremities Exam: Full ROM, Normal Capillary Refill, Normal Inspection. absent : Joint Swelling, Pedal Edema - Back Exam Back Exam: NORMAL INSPECTION - Neurological Exam Neurological Exam: Alert, Awake, CN II-XII Intact, Normal Gait, Oriented x3 - Psychiatric Exam Psychiatric exam: Normal Affect, Normal Mood - Skin Skin Exam: Dry, Intact, Normal Color, Warm Assessment and Plan (1) Aortic stenosis Status: Acute (2) CHF (congestive heart failure) Status: Acute (3) NSTEMI (non-ST elevated myocardial infarction) Status: Acute (4) PNA (pneumonia) Status: Acute (5) Troponin level elevated Status: Acute
--- NOTE | 2017-07-22 18:28 | PN ---
DATE: 07/22/2017 SUBJECTIVE: The patient was seen and examined at bedside. The patient is feeling better. Denies any shortness of breath, chest pain, or dizziness. Denies any nausea, vomiting, abdominal pain, diarrhea, or constipation. Complaining of lower extremity swelling more than yesterday. Denies any other complaints. All other systems reviewed and were found to be negative. PHYSICAL EXAMINATION: GENERAL: Elderly male, sitting in bed in no acute distress. VITAL SIGNS: Blood pressure 122/78, pulse 92, respirations 20, temperature 97.7 degrees Fahrenheit, O2 saturation 95% on room air. His intake is 950 mL and output is 2900 mL. HEENT: Pupils are equal, round, reacting to light and accommodation. Extraocular muscles intact. No icterus. No pallor. No oral thrush. No oropharyngeal congestion. NECK: Supple. No JVD. LUNGS: Bilateral vesicular breath sounds. Bilateral occasional wheezing. Bilateral basilar crackles heard. CVS: S1 and S2 present, regular. ABDOMEN: Soft and nontender. Bowel sounds present. No guarding. No rigidity. No rebound tenderness noted. 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 No focal deficits noted. EXTREMITIES: 2+ pitting edema. Palpable peripheral pulses. MEDICATIONS: Include aspirin 325 mg daily, Zithromax 500 mg IV daily, Rocephin 1 gm daily, Lasix 40 mg IV every 12 hours, Robitussin 200 mg every 6 hours p.r.n., Zestril 5 mg daily, Solu-Medrol 20 mg IV every 8 hours, metoprolol 25 mg p.o. b.i.d., Crestor 10 mg p.o. at bedtime. LABORATORY DATA: No known labs done today. Blood cultures negative. Urine culture negative. ASSESSMENT AND PLAN: Elderly male with coronary artery disease with severe aortic stenosis, status post cardiac catheterization consistent with high grade stenosis of 95% of the left circumflex and left anterior descending with ejection fraction 35% and severe aortic stenosis, congestive heart failure exacerbation, chronic obstructive pulmonary disease exacerbation, bilateral infiltrates, status post carotid Doppler negative for any blockage or stenosis. The patient is scheduled for left anterior descending and circumflex stent placement, possible tomorrow a.m. by Dr. Lora. His white count is improving, probably elevation is secondary to IV steroids as the patient is at the risk ____ toxic. No other signs of sepsis. We will repeat labs in the morning. We will switch IV antibiotics to p.o. and also switch IV steroids to p.o. steroids. We will follow up with Cardiology and Pulmonary. Marisol Bishop MD
[2017-07-23] MEDS: MethylPREDNISolone 40 mg Vial IV SCH (00:30)
[2017-07-23 06:27] LABS: BASO # 0.1 K/uL (0.0-0.2); BASO % 0.3 % (0.0-2.0); EOS % 0.1 % (0.0-4.0); HEMOGLOBIN 15.1 g/dL (12.0-18.0); LYMPH # 1.1 K/uL (1.0-4.3); LYMPH % 5.2 % (20.0-40.0); MEAN CELL VOLUME 91.1 fL (80.0-94.0); MEAN CORPUSCULAR HEMOGLOBIN 30.9 pg (27.0-31.0); MEAN CORPUSCULAR HGB CONC 33.9 g/dL (33.0-37.0); MEAN PLATELET VOLUME 8.1 fL (7.2-11.7); MONO # 0.7 K/uL (0.0-0.8); MONO % 3.6 % (0.0-10.0); NEUT # 18.8 K/uL (1.8-7.0); NEUT % 90.8 % (50.0-75.0); PLATELET COUNT 313 K/uL (130-400); RED CELL DISTRIBUTION WIDTH 14.3 % (11.5-14.5); WHITE BLOOD COUNT 20.7 K/uL (4.8-10.8)
[2017-07-23 06:34] LABS: INR 1.1
[2017-07-23 06:45] LABS: ALB/GLOB RATIO 0.8 (1.0-2.1); ALBUMIN 3.4 g/dL (3.5-5.0); ALT/SGPT 186 U/L (21-72); AST/SGOT 95 U/L (17-59); BLOOD UREA NITROGEN 52 mg/dL (9-20); CALCIUM 9.4 mg/dl (8.6-10.4); GFR AFRICAN-AMERICAN > 60; GFR NON-AFRICAN AMERICAN > 60
[2017-07-23 08:07] VITALS: BP 122/77; PULSE 89; RESP 18; TEMP 97.9; O2SAT 96
--- NOTE | 2017-07-23 08:26 | CP.PCM.PN ---
<Jose Raul Weiss - Last Filed: 07/23/17 08:23> Subjective - Date & Time of Evaluation Date of Evaluation: 07/23/17 Time of Evaluation: 08:23 - Subjective Subjective: Jose Raul Weiss PGY1 [facility] Progress Note for Dr. Lora Patient was seen and examined at bedside. Patient is understanding and in agreement for transfer to [place] for stenting the 2 vessels and possible valve repair/TAVR. overall, denies shortness of breath, chest pain, n/v/d, fevers/chills, abdominal pain. Objective - Vital Signs/Intake and Output Vital Signs (last 24 hours): Temp Pulse Resp BP Pulse Ox 97.9 F 89 18 122/77 96 07/23/17 07:00 07/23/17 07:00 07/23/17 07:00 07/23/17 07:00 07/23/17 07:00 Intake and Output: 07/23/17 07/23/17 06:59 18:59 Intake Total 0 Balance 0 - Medications Medications: Current Medications Acetaminophen (Tylenol 325mg Tab) 650 mg PO Q6 PRN PRN Reason: Pain, moderate (4-7) Last Admin: 07/18/17 20:11 Dose: 650 mg Amoxicillin/Clavulanate Potassium (Augmentin 875 Mg-125 Mg Tab) 1 tab PO Q12H JAMI PRN Reason: Protocol Aspirin (Aspirin) 325 mg PO DAILY [facility] Last Admin: 07/22/17 10:04 Dose: 325 mg Furosemide (Lasix) 40 mg IVP Q12 [facility] Last Admin: 07/22/17 21:39 Dose: 40 mg Guaifenesin (Robitussin) 200 mg PO Q6H PRN PRN Reason: Cough and congestion Last Admin: 07/20/17 09:21 Dose: 200 mg Azithromycin 500 mg/ Sodium (Chloride) 250 mls @ 250 mls/hr IVPB Q24H JAMI PRN Reason: Protocol Last Admin: 07/22/17 10:05 Dose: 250 mls/hr Ceftriaxone Sodium 1 gm/ (Sodium Chloride) 100 mls @ 100 mls/hr IVPB Q24H JAMI PRN Reason: Protocol Last Admin: 07/22/17 12:08 Dose: 100 mls/hr Lisinopril (Zestril) 5 mg PO DAILY [facility] Last Admin: 07/22/17 10:04 Dose: 5 mg Methylprednisolone (Solu-Medrol) 20 mg IV Q8H [facility] Last Admin: 07/23/17 00:30 Dose: 20 mg Metoprolol Tartrate (Lopressor) 25 mg PO BID [facility] Last Admin: 07/22/17 17:36 Dose: Not Given Prednisone (Prednisone Tab) 20 mg PO DAILY [facility] Rosuvastatin Calcium (Crestor) 10 mg PO HS [facility] Last Admin: 07/22/17 21:39 Dose: 10 mg - Labs Labs: 07/23/17 06:20 07/23/17 06:20 PT 12.0 SECONDS (9.7-12.2) 07/23/17 06:20 INR 1.1 07/23/17 06:20 APTT 29 SECONDS (21-34) 07/23/17 06:20 - Additional Findings Additional findings: - Constitutional Appears: Well, Non-toxic, No Acute Distress - Head Exam Head Exam: NORMAL INSPECTION - Eye Exam Eye Exam: Normal appearance Pupil Exam: NORMAL ACCOMODATION - ENT Exam ENT Exam: Normal Exam - Neck Exam Neck Exam: Normal Inspection - Respiratory Exam Respiratory Exam: Rales (mild), NORMAL BREATHING PATTERN. absent: Respiratory Distress (able to speak in short sentences) - Cardiovascular Exam Cardiovascular Exam: RRR, +S1, +S2, Murmur - GI/Abdominal Exam GI & Abdominal Exam: Normal Bowel Sounds - Extremities Exam Extremities Exam: Full ROM. absent: Pedal Edema - Back Exam Back Exam: Full ROM - Neurological Exam Neurological Exam: Alert, Awake - Psychiatric Exam Psychiatric exam: Normal Mood - Skin Skin Exam: Normal Color Assessment and Plan - Assessment and Plan (Free Text) Assessment: 72yo M with PMH of HTN and pneumonia presenting with CHF exacerbation, NSTEMI and pneumonia. Plan is for LHC and possible TAVR, being transferred today to [place] w/ ACLS ambulance due to sob and hypoxia. Plan: 1. CHF exacerbation, likely 2/2 severe - plan for PCI 2 vessel disease and possible TAVR to follow - PFT's were done; f/u results - Echo showed EF 35% w/ lateral WMA, severe LV diastolic dysfunction and severe - cath showed severe aortic stenosis, 2 vessel CAD and elevated EDP; recommending AVR vs TAVR w/ possible revascularization of LAD and circumflex - carotid Duplex doesn't suggest significant hemodynamic stenosis - cont Lasix 40mg IVP q12 - cont BB and ACEi 2. NSTEMI - d/c heparin drip - cont ASA and BB - cont statin 3. Leukocytosis - likely reactive 2/2 solu-medrol - afebrile 4. Pneumonia - cont Rocephin and Zithromax - soulmedrol Patient was evaluated and discussed with Dr. Lora <Joshua Lora - Last Filed: 07/24/17 07:58> Objective - Vital Signs/Intake and Output Vital Signs (last 24 hours): Temp Pulse Resp BP Pulse Ox 97.9 F 89 18 122/77 96 07/23/17 07:00 07/23/17 07:00 07/23/17 07:00 07/23/17 08:45 07/23/17 07:00 - Labs Labs: 07/23/17 06:20 07/23/17 06:20 PT 12.0 SECONDS (9.7-12.2) 07/23/17 06:20 INR 1.1 07/23/17 06:20 APTT 29 SECONDS (21-34) 07/23/17 06:20 Assessment and Plan (1) Aortic stenosis Status: Acute (2) CHF (congestive heart failure) Status: Acute (3) NSTEMI (non-ST elevated myocardial infarction) Status: Acute (4) PNA (pneumonia) Status: Acute (5) Troponin level elevated Status: Acute Attending/Attestation - Attestation I have personally seen and examined this patient.: Yes I have fully participated in the care of the patient.: Yes I have reviewed all pertinent clinical information, including history, physical exam and plan: Yes
[2017-07-23 09:34] LABS: BANDS 1 % (0-2); LYMPHOCYTE 5 % (20-40); MONOCYTE 6 % (0-10); NEUTROPHIL 87 % (50-75); PLATELET ESTIMATE NORMAL (NORMAL); REACTIVE LYMPHOCYTES 1 % (0-0); TOTAL CELLS COUNTED 100
[2017-07-23 09:35] LABS: ANISOCYTOSIS SLIGHT; HYPOCHROMIC SLIGHT; LARGE PLATELETS PRESENT; POLYCHROMIC SLIGHT
[2017-07-23 09:36] LABS: TOXIC GRANULATION PRESENT
[2017-07-23] MEDS ORDERED: Amoxicillin-Clav 875-125 mg Tab PO SCH (10:00)
== END 2017-07-23 09:20 | disposition short-term general hospital (02) | DRG 280 ==
LOC: C.ER 15:58 → C.9E 20:20 → C.6T 20:20
PROVIDERS: ADMIT Internal Medicine; ATTEND Internal Medicine
PROC: 4A023N8 Measurement of Cardiac Sampling and Pressure, Bilateral, Percutaneous Approach (ICD-10-PCS; principal; 2017-07-18)
PROC: B2161ZZ Fluoroscopy of Right and Left Heart using Low Osmolar Contrast (ICD-10-PCS; 2017-07-18)
PROC: B2111ZZ Fluoroscopy of Multiple Coronary Arteries using Low Osmolar Contrast (ICD-10-PCS; 2017-07-18)
DX: I21.4 Non-ST elevation (NSTEMI) myocardial infarction (principal); J18.9 Pneumonia, unspecified organism; I11.0 Hypertensive heart disease with heart failure; I50.9 Heart failure, unspecified; J44.0 Chronic obstructive pulmonary disease with (acute) lower respiratory infection; I25.10 Atherosclerotic heart disease of native coronary artery without angina pectoris; I35.0 Nonrheumatic aortic (valve) stenosis; I42.9 Cardiomyopathy, unspecified; J44.1 Chronic obstructive pulmonary disease with (acute) exacerbation; H91.92 Unspecified hearing loss, left ear; D72.829 Elevated white blood cell count, unspecified; T38.0X5A Adverse effect of glucocorticoids and synthetic analogues, initial encounter; Z87.01 Personal history of pneumonia (recurrent); Z87.891 Personal history of nicotine dependence